=== PATIENT | female | born 1975 | race Caucasian/White ===

== ENCOUNTER 2019-11-16 12:34 | Emergency (ER) | payer OTHER, SELFPAY ==
--- NOTE | ~2019-11-16 | XR_ITS ---
EXAMINATION: XR foot LT min 3V DATE: 11/16/2019 13:17 INDICATION: Left heel pain. TECHNIQUE: 4 views of left foot were obtained. COMPARISON: None. FINDINGS: Bone alignment is normal. No fracture. Joint spaces are well maintained. There is an enthes ophyte at plantar aspect of calcaneal tuberosity. IMPRESSION: 1. No fracture. Reviewed, dictated and finalized at location A. IMPRESSION: 1. No fracture.
[2019-11-16 12:48] VITALS: BP 145/91; PULSE 93; RESP 16; TEMP 37.2; O2SAT 98
--- NOTE | 2019-11-16 13:20 | ED.LOWEXIN ---
HPI - Extremity Injury (Lower) General Chief Complaint: Extremity Injury, Lower Stated Complaint: fell Time Seen by Provider: 11/16/19 13:05 Source: patient and RN notes reviewed History of Present Illness HPI Narrative: Patient is a 43-year-old female that presents the urgent care with complaints of left heel pain. Patient states yesterday she was walking in got her foot stuck in a concrete lip of the pavement, falling forward and losing her shoe. Patient denies any ankle pain. States it is just difficult to bear weight on the left heel. Patient states she does have a history of plantar fasciitis but this might be different . Patient denies hitting her head or any loss of consciousness. Patient has been using ice and elevating the foot without much relief. No other acute complaints. No acute distress noted. Patient read the plan of care. Related Data Home Medications Medication Instructions Recorded Confirmed folic acid 1 mg PO DAILY 11/16/19 11/16/19 methotrexate sodium 20 mg PO WEEKLY 11/16/19 11/16/19 Allergies Allergy/AdvReac Type Severity Reaction Status Date / Time morphine AdvReac Mild itch Verified 11/16/19 12:54 Review of Systems Review of Systems: Narrative: CONSTITUTIONAL: Denies fever, chills, or sweats. EYES: Denies visual changes, redness, or discharge. ENT: Denies rhinorrhea, congestion, sore throat, or otalgia. CARDIOVASCULAR: Denies chest pain, palpitations, or edema. RESPIRATORY: Denies cough or dyspnea. GASTROINTESTINAL: Denies abdominal pain, nausea, vomiting, or diarrhea. GENITOURINARY: Denies dysuria or hematuria. SKIN: Denies rash or itching. MUSCULOSKELETAL: Reports of left heel pain NEUROLOGIC: Denies headache, numbness, or weakness. All other systems reviewed are negative, except as documented in HPI. [facility] Past Medical History Medical History (Updated 11/16/19 @ 13:38 by KARRIE Barboza) Eczema History of drainage of abscess History of MRSA infection Social History Social History Gender identity (if verbalized by the patient): Female Comments At the time of my signature, I reviewed and agree with the nursing past medical, surgical, social, and family history. There is no relevant family history pertinent to the patient complaint. Exam Narrative: Exam Narrative: GENERAL: This is a well-nourished, well-developed patient, in no apparent distress. HEAD: normocephalic, atraumatic. EYES: PERRL. Sclera clear/white. Vision is grossly intact. EARS: External ears normal NOSE: External nose normal with no obvious nasal discharge THROAT: Mucous membranes moist NECK: Neck supple CARDIOVASCULAR: Regular rate and rhythm without murmurs, gallops, or rubs. RESPIRATORY: Clear to auscultation. Breath sounds equal bilaterally. No wheezes, rales, or rhonchi. SKIN: warm, intact with no suspicious lesions or rash, good texture and turgor. NEURO: awake, alert, and oriented to person, place and time. There were no obvious focal neurologic abnormalities. EXTREMITIES: Mild to moderate left plantar heel pain without notable erythema or ecchymosis. Positive strong left pedal pulse with capillary refill less than 2 seconds. Range of motion within normal limits to left lower extremity. Course Vital Signs Vital signs: Vital Signs Temperature 99.0 F 11/16/19 12:48 Pulse Rate 93 11/16/19 12:48 Respiratory Rate 16 11/16/19 12:48 Blood Pressure 145/91 H 11/16/19 12:48 Pulse Oximetry 98 11/16/19 12:48 Temperature 99.0 F 11/16/19 12:48 Pulse Rate 93 11/16/19 12:48 Respiratory Rate 16 11/16/19 12:48 Blood Pressure 145/91 H 11/16/19 12:48 Pulse Oximetry 98 11/16/19 12:48 Reviewed?patient is informed that they may have pre-hypertension or hypertension based on a blood pressure reading in the department. I recommend the patient call the primary care provider listed on their discharge instructions or a physician of their choice this week to arrange follow-up for f
== END 2019-11-16 13:40 | disposition home or self-care (01) ==
PROVIDERS: Emergency Provider Nurse Practitioner Family
DX: M72.2 Plantar fascial fibromatosis (principal); M77.32 Calcaneal spur, left foot; Z86.14 Personal history of Methicillin resistant Staphylococcus aureus infection
CPT/HCPCS: 73630; 99213; G0463

== ENCOUNTER 2022-03-30 10:18 | Emergency (ER) | payer OTHER, SELFPAY ==
[2022-03-30 10:44] VITALS: BP 149/95; PULSE 86; RESP 18; TEMP 36.4; O2SAT 100
--- NOTE | 2022-03-30 11:51 | ED.GENADULT ---
HPI - General Adult General Chief complaint: Skin/Abscess/Foreign Body Stated complaint: Mouth Pain Time Seen by Provider: 03/30/22 11:51 Source: patient and RN notes reviewed Mode of arrival: ambulatory Limitations: no limitations History of Present Illness HPI narrative: Old female presents to the [facility] with complaints of redness, swelling to the lateral aspect left upper lip. Patient reports that she has a history of MRSA and gets the sores frequently. Does see a assistant golf course superintendent at [facility], has an appointment next week. Denies any fevers. Drainage is noted. Area is firm measuring 1-1/2 cm in diameter. Related Data Home Medications Medication Instructions Recorded Confirmed folic acid 1 mg tablet 1 mg PO DAILY 11/16/19 03/30/22 methotrexate sodium 2.5 mg tablet 20 mg PO WEEKLY 11/16/19 03/30/22 Allergies Allergy/AdvReac Type Severity Reaction Status Date / Time morphine AdvReac Mild itch Verified 11/16/19 12:54 Review of Systems Review of Systems: All systems reviewed & are unremarkable except as noted in HPI and below Constitutional: Constitutional: Reports no additional constitutional complaints, Denies chills and Denies fever(s) Eyes: Eyes: Reports no additional eye complaints ENT: Reports system reviewed and no additional complaints, except as documented Cardiovascular: Cardiovascular: Reports no additional cardiovascular complaints Respiratory: Respiratory: Reports no additional respiratory complaints Gastrointestinal: Gastrointestinal: Reports no additional gastrointestinal complaints Musculoskeletal: Musculoskeletal: Reports no additional musculoskeletal complaints Integumentary/Breasts: Skin/Breast: Reports as per HPI and Reports erythema (Left lateral upper lip) Neurologic: Reports system reviewed and no additional complaints, except as documented Psychiatric: Psychiatric: Reports no additional psychiatric complaints Allergic/Immunologic: Allergic/Immunologic: Reports no additional allergic/immunologic complaints [facility] Past Medical History Medical History (Updated 03/30/22 @ 12:00 by Trupti Simmons APRN) Eczema History of drainage of abscess History of MRSA infection Social History Social History Gender identity (if verbalized by the patient): Female Comments At the time of my signature, I reviewed and agree with the nursing past medical, surgical, social, and family history. There is no relevant family history pertinent to the patient complaint. Exam Const: General: healthy appearing, no acute distress and alert Nutritional Appearance: well nourished Orientation/consciousness: patient oriented x3 Limitations: no limitations HENMT: Head: normal to inspection Ears: external ears normal Other: 1cm firm area to the left upper lip. No fluctuance noted. Hot to touch. Has an appointment with a skin doctor at [facility] coming up. Eyes: General: appearance normal, both eyes and all related structures Conjunctivae: conjunctivae normal Pupils: Equal, round and reactive pupils present Neck: Neck: normal visual inspection, no lymphadenopathy and no meningeal signs Chest: Chest palpation & inspection: normal inspection of the chest Resp: Effort & Inspection: normal respiratory effort and no use of accessory muscles Auscultation: clear to auscultation bilaterally, no crackles, no rales, no rhonchi and no wheezes Cardio: Rate: regular rate Rhythm: regular rhythm Back/Spine/Pelvis: Cervical Spine: normal cervical lordosis Thoracic/Lumbar Spine: thoracic and lumbar spine normal to inspection Skin: General skin exam: normal color Rashes: no rashes Wounds: no wounds Neuro: General: patient oriented x3, moves all extremities, no meningeal signs and no focal motor deficits Cranial nerves: Yes Equal, round and reactive pupils present Speech: normal speech Gait exam (Neuro): Normal gait present Extre
== END 2022-03-30 12:11 | disposition home or self-care (01) ==
PROVIDERS: Emergency Provider Nurse Practitioner
DX: L03.211 Cellulitis of face (principal); Z86.14 Personal history of Methicillin resistant Staphylococcus aureus infection
CPT/HCPCS: 87070; 87075; 87147; 87181; 87186; 87205; 99213; G0463

== ENCOUNTER 2022-08-11 18:04 | Emergency (ER) | payer OTHER, SELFPAY ==
--- NOTE | 2022-08-11 18:05 | ED.DENTAL ---
HPI - Dental/Oral General Chief complaint: Dental/Oral Stated complaint: SWOLLEN GUMS Time Seen by Provider: 08/11/22 18:05 Source: patient and RN notes reviewed History of Present Illness HPI Narrative: Patient is a 46-year-old female who presents to urgent care with complaints of redness, swelling to the left upper gumline. Patient states she noticed it 2 days ago. Patient has not taken anything [id number] for her symptoms. States that she has attempted to find a dentist who accepts her insurance and she has not found 1. Denies any dental pain. Denies any fevers. No other acute complaints. No acute distress noted. Patient aware of the plan of care. Some parts of this dictation were generated by voice recognition software and may contain typographical and/or grammatical inaccuracies. Related Data Home Medications Medication Instructions Recorded Confirmed folic acid 1 mg tablet 1 mg PO DAILY 11/16/19 08/11/22 methotrexate sodium 2.5 mg tablet 20 mg PO WEEKLY 11/16/19 08/11/22 Allergies Allergy/AdvReac Type Severity Reaction Status Date / Time morphine AdvReac Mild itch Verified 08/11/22 18:06 Review of Systems Review of Systems: CONSTITUTIONAL: Denies fever, chills, or sweats. EYES: Denies visual changes, redness, or discharge. ENT: Denies rhinorrhea, congestion, sore throat, or otalgia. Reports of left upper gum swelling CARDIOVASCULAR: Denies chest pain, palpitations, or edema. RESPIRATORY: Denies cough or dyspnea. GASTROINTESTINAL: Denies abdominal pain, nausea, vomiting, or diarrhea. GENITOURINARY: Denies dysuria or hematuria. SKIN: Denies rash or itching. MUSCULOSKELETAL: Denies back pain, joint pain, or myalgia. NEUROLOGIC: Denies headache, numbness, or weakness. All other systems reviewed are negative, except as documented in HPI. [facility] Past Medical History Medical History (Updated 08/11/22 @ 18:25 by KARRIE Barboza) Eczema History of drainage of abscess History of MRSA infection Social History Social History Gender identity (if verbalized by the patient): Female Comments At the time of my signature, I reviewed and agree with the nursing past medical, surgical, social, and family history. There is no relevant family history pertinent to the patient complaint. Exam Narrative: GENERAL: This is a well-nourished, well-developed patient, in no apparent distress. HEAD: normocephalic, atraumatic. EYES: PERRL. Sclera clear/white. Vision is grossly intact. EARS: External ears normal, auditory canals clear and without drainage, TMs normal without perforation. Hearing grossly intact. NOSE: External nose normal with no obvious nasal discharge, nares without redness, no rhinorrhea. THROAT: Mucous membranes moist, posterior pharynx clear. Mild postnasal drainage DENTAL: Mild edema/erythema to left upper quadrant/gingivitis. Canker sore noticed to the left gum line near the canine NECK: Neck supple SKIN: warm, intact with no suspicious lesions or rash, good texture and turgor. NEURO: awake, alert, and oriented to person, place and time. There were no obvious focal neurologic abnormalities. EXTREMITIES: No clubbing, cyanosis, or edema. Course Course Level of Care: Express Care Visit Vital Signs Vital signs: Vital Signs Temperature 97.1 F L 08/11/22 18:16 Pulse Rate 65 08/11/22 18:16 Respiratory Rate 16 08/11/22 18:16 Blood Pressure 144/93 H 08/11/22 18:16 Pulse Oximetry 100 08/11/22 18:16 Temperature 97.1 F L 08/11/22 18:16 Pulse Rate 65 08/11/22 18:16 Respiratory Rate 16 08/11/22 18:16 Blood Pressure 144/93 H 08/11/22 18:16 Pulse Oximetry 100 08/11/22 18:16 Reviewed- Patient is informed that they may have pre-hypertension or hypertension based on a blood pressure reading in the department. I recommend the patient call the primary care provider listed on their discharge instructions or a physician
[2022-08-11 18:16] VITALS: BP 144/93; PULSE 65; RESP 16; TEMP 36.2; O2SAT 100
== END 2022-08-11 18:27 | disposition home or self-care (01) ==
PROVIDERS: Emergency Provider Nurse Practitioner Family
DX: K05.10 Chronic gingivitis, plaque induced (principal); Z86.14 Personal history of Methicillin resistant Staphylococcus aureus infection
CPT/HCPCS: 99213; G0463

== ENCOUNTER 2022-11-24 10:19 | Emergency (ER) | payer OTHER, SELFPAY ==
[2022-11-24 10:35] VITALS: BP 126/92; PULSE 88; RESP 18; TEMP 36.6; O2SAT 100
--- NOTE | 2022-11-24 10:51 | ED.SKABFB ---
HPI - Skin/Abscess/Foreign Bdy General Chief complaint: Skin/Abscess/Foreign Body Stated complaint: infection lt shoulder blade Time Seen by Provider: 11/24/22 10:45 Source: patient, RN notes reviewed and old records reviewed Mode of arrival: ambulatory Limitations: no limitations History of Present Illness HPI narrative: 46 year old female presents to [facility] care with complaints of abscess lesion to her left scapula region which started on Wednesday. Patient reports that she thought it was a pimple and popped it. 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 complaint: abscess/boil Onset (ago): day(s) (4) Tetanus up to date: yes Location: back (left scapular area) Severity scale (1-10): 4 Treatments prior to arrival: attempted to drain pus at home and other (warm compresses) Related Data Home Medications Medication Instructions Recorded Confirmed folic acid 1 mg tablet 1 mg PO DAILY 11/16/19 11/24/22 methotrexate sodium 2.5 mg tablet 20 mg PO WEEKLY 11/16/19 11/24/22 Allergies Allergy/AdvReac Type Severity Reaction Status Date / Time morphine AdvReac Mild itch Verified 11/24/22 10:43 amoxicillin AdvReac Other Verified 11/24/22 10:44 Review of Systems Review of Systems: CONSTITUTIONAL: Denies fever, chills, or sweats. CARDIOVASCULAR: Denies chest pain, palpitations, or edema. RESPIRATORY: Denies cough or dyspnea. GASTROINTESTINAL: Denies abdominal pain, nausea, vomiting SKIN: Reports redness and swelling. Denies any present purulent drainage, pain beyond proportion,positive warmth to left scapular region abscess MUSCULOSKELETAL: Denies myalgia. NEUROLOGIC: Denies headache, numbness All systems reviewed & are unremarkable except as noted in HPI and below PMFSH Past Medical History Medical History (Updated 11/25/22 @ 09:50 by Gemini Mendoza NP) Eczema History of drainage of abscess History of MRSA infection Social History Social History (Updated 11/25/22 @ 09:45 by Gemini Mendoza NP) Smoking status: Never smoker Alcohol intake: current Alcohol use details: rare social Substance use: never Substance use type: does not use Living arrangements: with family Gender identity (if verbalized by the patient): Female Comments At time of signature, agree with nursing past medical, surgical, social and family history. There is no relevant family history pertinent to the presenting complaint Exam Narrative: GENERAL: Well-appearing, well-nourished, and in no acute distress. HEAD: Normocephalic, atraumatic. EYES: PERRLA and EOMI. ENT: Nares clear, no rhinorrhea or epistaxis. Mucous membranes moist. NECK: Supple.no lymphadenopathy CHEST: Clear to auscultation. No respiratory distress. SAO2 100% on room air HEART: Regular rate and rhythm. No murmur heard. Normal peripheral pulses. ABDOMEN: Soft, nontender, nondistended, normal active bowel sounds. EXTREMITIES: Normal range of motion. No edema. SKIN: Warm, dry. Erythema, induration, tenderness, warmth with sharp margins noted 8cm width by 6cm length. No vesicles, bullae, necrosis, positive ecchymosis, no fluctuance of tissue noted is tender to palpation. NEURO: No focal deficits. Alert and oriented x3. Course Course Emergency Course: Patient is aware of diagnosis, understands and agrees to treatment plan. Anticipatory guidance given. Patient agrees to follow-up as directed and is aware of reasons to seek care at the emergency department. Portions of this record may have been created with voice recognition software Level of Care: Express Care Visit Vital Signs Vital signs: Vital Signs Temperature 36.6 C 11/24/22 10:35 Pulse Rate 88 11/24/22 10:35 Respiratory Rate 18 11/24/22 10:35 B
== END 2022-11-24 11:20 | disposition home or self-care (01) ==
PROVIDERS: Emergency Provider Registered Nurse
DX: L02.414 Cutaneous abscess of left upper limb (principal); Z86.14 Personal history of Methicillin resistant Staphylococcus aureus infection
CPT/HCPCS: 99213; G0463

== ENCOUNTER 2023-05-12 08:32 | Emergency (ER) | payer OTHER, SELFPAY ==
--- NOTE | 2023-05-12 08:41 | ED.SKABFB ---
HPI - Skin/Abscess/Foreign Bdy General Chief complaint: Skin/Abscess/Foreign Body Stated complaint: Boil on Back Time Seen by Provider: 05/12/23 08:47 Source: patient, RN notes reviewed and old records reviewed Mode of arrival: ambulatory Limitations: no limitations History of Present Illness HPI narrative: 47 year old female who presents to [facility] care with complaints of having boil on her lower back since Wednesday and has noted small amount of purulent drainage from site starting on Wednesday. Patient reports history of previous MRSA infections and abscess formations. Patient has area of redness, swelling with minimal warmth to lower mid back with small pustule noted no fluctuance of tissue noted. Patient has been using warm compresses to area and has taken Tylenol for her discomfort. MD complaint: abscess/boil Onset (ago): day(s) (5) Location: back Severity: moderate Quality: aching Treatments prior to arrival: other (warm compresses, Tylenol) Related Data Home Medications Medication Instructions Recorded Confirmed folic acid 1 mg tablet 1 mg PO DAILY 11/16/19 05/12/23 methotrexate sodium 2.5 mg tablet 20 mg PO WEEKLY 11/16/19 05/12/23 nystatin 100,000 unit/gram topical 1 applic topical DIRECTED 05/12/23 05/12/23 cream tacrolimus 0.1 % topical ointment 1 applic topical DIRECTED 05/12/23 05/12/23 Allergies Allergy/AdvReac Type Severity Reaction Status Date / Time morphine AdvReac Mild itch Verified 05/12/23 08:44 amoxicillin AdvReac Other Verified 05/12/23 08:44 Review of Systems Review of Systems: CONSTITUTIONAL: Denies fever, chills, or sweats. CARDIOVASCULAR: Denies chest pain, palpitations, or edema. RESPIRATORY: Denies cough or dyspnea. GASTROINTESTINAL: Denies abdominal pain, nausea, vomiting SKIN: Reports redness and swelling area to lower mid back. Reports small amount of purulent drainage,small inner pustule with no fluctuance of tissue, reports no pain beyond proportion. MUSCULOSKELETAL: Denies myalgia. NEUROLOGIC: Denies headache, numbness All systems reviewed & are unremarkable except as noted in HPI and below PMFSH Past Medical History Medical History (Updated 05/12/23 @ 09:07 by Gemini Mendoza NP) Eczema History of drainage of abscess History of MRSA infection Surgical History Surgical History (Updated 05/12/23 @ 09:07 by Gemini Mendoza NP) Previous section x2 Social History Social History (Updated 11/25/22 @ 09:45 by Gemini Mendoza NP) Smoking status: Never smoker Alcohol intake: current Alcohol use details: rare social Substance use: never Substance use type: does not use Living arrangements: with family Gender identity (if verbalized by the patient): Female Comments At time of signature, agree with nursing past medical, surgical, social and family history. There is no relevant family history pertinent to the presenting complaint Exam Narrative: GENERAL: Well-appearing, well-nourished,obesity and in no acute distress. HEAD: Normocephalic, atraumatic. EYES: PERRLA and EOMI. ENT: Nares clear, no rhinorrhea or epistaxis. Mucous membranes moist. NECK: Supple. no lymphadenopathy CHEST: Clear to auscultation. No respiratory distress.SAO2 99% on room air HEART: Regular rate and rhythm. No murmur heard. Normal peripheral pulses. ABDOMEN: Soft, nontender, nondistended, normal active bowel sounds. EXTREMITIES: Normal range of motion. No edema. SKIN: Warm, dry. [id number] area of erythema, induration, tenderness, warmth with small 0.3cm pustule no fluctuance of tissue, has been daining small amounts of purulent material, Patient also has history of past MRSA infections and eczema. NEURO: No focal deficits. Alert and oriented x3. Course Course Emergency Course: Patient is aware of diagnosis, understands and agrees to treatment plan. Anticipatory guidance given. Patient agrees to follow-up as directed and is aware of reasons to seek care at the
[2023-05-12 08:43] VITALS: BP 144/92; PULSE 85; RESP 16; TEMP 35.9; O2SAT 99
[2023-05-12 08:45] VITALS: BP 144/92; PULSE 85; RESP 16; TEMP 35.9; O2SAT 99
== END 2023-05-12 09:02 | disposition home or self-care (01) ==
PROVIDERS: Emergency Provider Registered Nurse
DX: L02.212 Cutaneous abscess of back [any part, except buttock and flank] (principal); Z86.14 Personal history of Methicillin resistant Staphylococcus aureus infection
CPT/HCPCS: 99213; G0463

== ENCOUNTER 2023-09-22 08:17 | Emergency (ER) | payer OTHER, SELFPAY ==
[2023-09-22 08:26] VITALS: BP 112/67; PULSE 66; RESP 16; TEMP 36.4; O2SAT 100
--- NOTE | 2023-09-22 08:40 | ED.SKABFB ---
HPI - Skin/Abscess/Foreign Bdy General Chief complaint: Skin/Abscess/Foreign Body Stated complaint: INFECTED RASH Time Seen by Provider: 09/22/23 08:40 Source: patient Mode of arrival: ambulatory Limitations: no limitations History of Present Illness HPI narrative: [age] year female presents with complaint infection to right side forehead for 3-4 days below left nostril for 2 days. Patient reports history of staph and MRSA. States that she gets skin infections from scratching her eczema. Afebrile. All systems reviewed and negative except as noted above. Related Data Allergies Allergy/AdvReac Type Severity Reaction Status Date / Time morphine AdvReac Mild itch Verified 09/22/23 08:38 amoxicillin AdvReac Other Verified 09/22/23 08:38 Review of Systems Review of Systems: CONSTITUTIONAL: Denies fever, chills, or sweats. EYES: Denies visual changes, redness, or discharge. ENT: Denies rhinorrhea, congestion, sore throat, or otalgia. CARDIOVASCULAR: Denies chest pain, palpitations, or edema. RESPIRATORY: Denies cough or dyspnea. GASTROINTESTINAL: Denies abdominal pain, nausea, vomiting, or diarrhea. GENITOURINARY: Denies dysuria or hematuria. SKIN: Denies rash or itching. Reports redness, swelling and drainage to right forehead and below left ear. MUSCULOSKELETAL: Denies back pain, joint pain, or myalgia. NEUROLOGIC: Denies headache, numbness, or weakness. PSYCHIATRIC: Denies anxiety or depression. All other systems reviewed are negative, except as documented in HPI. [facility] Past Medical History Medical History (Updated 09/22/23 @ 08:46 by Wilda Schneider NP) Eczema History of drainage of abscess History of MRSA infection Surgical History Surgical History (Updated 05/12/23 @ 09:07 by Gemini Mendoza NP) Previous section x2 Social History Social History (Updated 11/25/22 @ 09:45 by Gemini Mendoza NP) Smoking status: Never smoker Alcohol intake: current Alcohol use details: rare social Substance use: never Substance use type: does not use Living arrangements: with family Gender identity (if verbalized by the patient): Female Comments At time of signature, agree with nursing past medical, surgical, social and family history. There is no relevant family history pertinent to the presenting complaint. Exam Narrative: GENERAL: This is a well-nourished, well-developed patient, in no apparent distress. HEAD: normocephalic, atraumatic. EYES: PERRL. Sclera clear/white. Vision is grossly intact. EARS: External ears normal NOSE: External nose normal NECK: Neck supple, non-tender without lymphadenopathy, masses or thyromegaly. CARDIOVASCULAR: Regular rate and rhythm without murmurs, gallops, or rubs. RESPIRATORY: Clear to auscultation. Breath sounds equal bilaterally. No wheezes, rales, or rhonchi. SKIN: warm, Dry, intact with no suspicious rash, good texture and turgor. open and draining erythematous swollen area to R forehead approx. 2cm diameter. area of erythema below L nare, swollen, tender. no drainage or fluctuance. NEURO: awake, alert, and oriented to person, place and time. There were no obvious focal neurologic abnormalities. EXTREMITIES: No joint tenderness, effusion, or edema noted. Course Course Level of Care: Express Care Visit Vital Signs Vital signs: Vital Signs Temperature 36.4 C L 09/22/23 08:26 Pulse Rate 66 09/22/23 08:26 Respiratory Rate 16 09/22/23 08:26 Blood Pressure 112/67 09/22/23 08:26 Pulse Oximetry 100 09/22/23 08:26 Temperature 36.4 C L 09/22/23 08:26 Pulse Rate 66 09/22/23 08:26 Respiratory Rate 16 09/22/23 08:26 Blood Pressure 112/67 09/22/23 08:26 Pulse Oximetry 100 09/22/23 08:26 Oxygen Delivery Room Air 09/22/23 08:30 Reviewed MDM - Skin/Abscess/Foreign Bdy MDM Narrative Medical decision making narrative: Patient is aware of diagnosis, understands and agrees to treatment plan.
== END 2023-09-22 08:49 | disposition home or self-care (01) ==
PROVIDERS: Emergency Provider Nurse Practitioner Family
DX: L08.9 Local infection of the skin and subcutaneous tissue, unspecified (principal); B95.8 Unspecified staphylococcus as the cause of diseases classified elsewhere; Z86.14 Personal history of Methicillin resistant Staphylococcus aureus infection
CPT/HCPCS: 99213; G0463

== ENCOUNTER 2024-10-11 18:02 | Emergency (ER) | payer OTHER, SELFPAY ==
[2024-10-11 18:33] VITALS: BP 123/71; PULSE 80; RESP 20; TEMP 36.6; O2SAT 100
--- NOTE | 2024-10-11 20:40 | PC.NURSE ---
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
--- OUTSIDE RECORDS SUMMARY | 2024-10-11 20:58 | XMS_ITS | Referral Summary ---
Author Organization [facility] Address [address] [place] [address] Care Team Providers Care Labor And Employment Paralegal Name Role Phone Unknown, Provider Primary Care Provider Unavaila ble Source Comments [facility],non-owned Affiliates and Associated Physician Practices is amultiple site organization consisting of ambulatory clinics and hospital sitesin [place], [place], [place] and [place]. This disclosure is being madepursuant to the Care Everywhere program and may not contain all information available regarding this patient. Last updated 18.[facility] Encounters Date Type Department Care Team Description 08/25/2024 Telephone [facility] - General Dermatology [address], [facility] [address] [place] [address] Tommy Castaneda PA-C Medication Issue 08/24/2024 Travel 08/24/2024 4:00 PM STAFF MIDWIFE Office Visit [facility] - General Dermatology [address], [facility] [address] [place] [address] Tommy Castaneda PA-C Other atopic dermatitis (Primary Dx); Prurigo nodularis; Other specified follicular disorders; Other seborrheic dermatitis 08/21/2024 Travel 08/21/2024 9:30 AM STAFF MIDWIFE Office Visit [facility] - Ophthalmology [address] [place] [phone] Fernando Gibbons MD 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 Alwaysverify current medications with the patient. Medication Sig Dispensed Refills Start Date End Date Status mupirocin (Bactroban) 2 % ointment Apply to affected area 3 times daily Apply to nostrils and open sores for 5 days 30 g 10/29/2022 Active triamcinolone acetonide (Kenalog) 0.1 % creamIndications:O ther atopic dermatitis Apply BID to itchy scaly lesions on the body as needed 454 g 1 06/07/2023 Active fluocinolone acetonide (Synalar) 0.01 % solutionIndication s:Other atopic dermatitis Apply to scaly scalp areas BID PRN. 30 day supply 60 mL 4 10/29/2023 Active nystatin (Mycostatin) [id number] UNIT/GM creamIndications:I ntertrigo Apply to skin folds 2-3 times daily. 30 days supply. 30 g 5 10/29/2023 Active tralokinumab-ldrm (Adbry) 150 MG/ML prefilled syringeIndications :Other atopic dermatitis Inject 300 mg subcutaneously every 14 days. 28 day supply 4 mL 5 06/01/2024 Active artificial tears (SOOTHE) ophthalmic solution Instill 1 (one) drop into right eye 4 times daily 15 mL 06/27/2024 Active tacrolimus (Protopic) 0.1 % ointmentIndication s:Other atopic dermatitis,Prurigo nodularis Apply to affected face two times daily as needed 30 day supply 30 g 5 08/24/2024 Active clindamycin (Cleocin) 1 % lotionIndications: Other specified follicular disorders Apply to affected area on thighs twice daily. 30 day supply. 60 mL 1 08/24/2024 Active ketoconazole (Nizoral) 2 % shampooIndications :Other seborrheic dermatitis Apply to wet hair, leave on for 3 minutes, then rinse; three times weekly. 30 days supply 120 mL 11 08/24/2024 Active fluocinonide (Lidex) 0.05 % solutionIndication s:Other seborrheic dermatitis Apply to affected scalp twice daily. 30 days supply. 40 mL 5 08/24/2024 Active ciclopirox (Loprox) 1 % shampooIndications :Other seborrheic dermatitis Apply to wet hair, leave on for 3 minutes, then rinse; twice weekly. 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 (F LUZONE; FLULAVAL; FLUARIX; AFLURIA QUADRIVALENT; 6MO+), 0.5 ML (IIV4) 05/13/2021 Social History Tobacco Use Types Packs/Day Years Used Date Smoking Tobacco: Never Smokeless Tobacco: Never Tobacco Cessation:Counseling Given: Not Answered Alcohol Use Standard Drinks/Week Comments No 1 (1 standard drink = 0.6 oz pure alcohol) OCCASIONAL, ONCE EVERY FEW MONTHS PHQ-2 Answer Date Recorded PHQ2 TOTAL SCORE 0 08/06/2021 Sex and Gender Information Value Date Recorded Sex Assigned at Female 08/06/2021 9:18 AM STAFF MIDWIFE Gender Identity Female 08/06/2021 9:18 AM STAFF MIDWIFE Sexual Orientation Straight 08/06/2021 9: 18 AM STAFF MIDWIFE Last Filed Vital Signs Vital Sign Reading Time Taken Comments Blood Pressure 126/57 06/25/2024 2:14 PM STAFF MIDWIFE Pulse 75 06/25/2024 2:14 PM STAFF MIDWIFE Temperature 36.6 C (97.9 F) 06/25/2024 9:07 AM STAFF MIDWIFE Respiratory Rate 14 06/25/2024 2:14 PM STAFF MIDWIFE Oxygen Saturation 98% 06/25/2024 2:14 PM STAFF MIDWIFE Inhaled Oxygen Concentration - - Weight 136.1 kg (300 lb) 06/25/2024 9:07 AM STAFF MIDWIFE Height 152.4 cm (5') 06/25/2024 9:07 AM STAFF MIDWIFE Body Mass Index 58.59 06/25/2024 9:07 AM STAFF MIDWIFE Functional Status Functional Status Response Date of Assess ment Is person deaf or have serious hearing difficult y? No 06/13/2021 Is person blind or have serious difficulty seein g? No 06/13/2021 Does person have serious dif ficulty walking/climbing stairs? No 06/13/2021 Does person have difficulty dressing/bathing? No 06/13/2021 Does person have difficulty doing errands alone? No 06/13/2021 Cognitive Status Response Date of Assessm ent Does person have difficulty concentrating/remembering/making decisions? No 06/13/2021 Plan of Treatment Upcoming Encounters Date Type Department Care Team (Late st Contact Info) Description 02/19/2025 11:00 AM CDT Office Visit [facility] - Ophthalmology [address] [place] [address], [place] [address] Fernando Gibbons MD [address] [place] [address] [place] [address] 02/27/2025 1:00 PM CDT Office Visit [facility] - Dermatology [address] [place] [address], [place] [address] Tommy Castaneda PA-C [address] [place] [address] Goals Goal Patient Goal Type Associated Problems Recent Progress Patient-Stated? Author Medication Management General On track( 022 10:49 AM STAFF MIDWIFE) No Norman Peter, RN Note: Expected end date: Interventions: Take all medications as prescribed Let your doctor know right away about any changes in your medications Make sure to request a refill of your medication at least one week prior to your last dose Procedures Procedure Name Priority Date/Time Associated Diagnosis Comments COMPREHENSIVE METABOLIC PANEL STAT 06/25/2024 9:42 AM STAFF MIDWIFE PAP IG LB+HPV APTIMA Routine 08/06/2021 12:06 PM STAFF MIDWIFE Well woman exam with routine gynecological exam HEPATITIS C AB W/RFLX TO HCV RNA QN PCR Routine 05/27/2017 10:13 AM CDT from Last 3 Months or Most Recently Relevant to Health Maintenance Results * (ABNORMAL) COMPREHENSIVE METABOLIC PANEL (06/25/2024 9:42 AM STAFF MIDWIFE) BUN 11 7 - 26 mg/dL 06/25/2024 10:26 AM [facility] Creatinine 0.84 0.56 - 0.96 mg/dL 06/25/2024 10:26 AM [facility] Sodium 139 136 - 145 mmol/L 06/25/2024 10:26 AM [facility] Potassium 4.1 3.5 - 4.5 mmol/L 06/25/2024 10:26 AM [facility] Chloride 107 98 - 107 mmol/L 06/25/2024 10:26 AM [facility] CO2 25 22 - 29 mmol/L 06/25/2024 10:26 AM [facility] Glucose 98 70 - 99 mg/dL 06/25/2024 10:26 AM [facility] Calcium 9.3 8.4 - 10.2 mg/dL 06/25/2024 10:26 AM [facility] Protein Total 7.3 6.0 - 8.3 g/dL 06/25/2024 10:26 AM [facility] Albumin 3.6 3.4 - 5.0 g/dL 06/25/2024 10:26 AM [facility] Bilirubin Total 0.5 0.2 - 1.2 mg/dL 06/25/2024 10:26 AM [facility] Alkaline Phosphatase 87 40 - 150 U/L 06/25/2024 10:26 AM [facility] ALT 17 5 - 55 U/L 06/25/2024 10:26 AM [facility] AST 17 5 - 34 U/L 06/25/2024 10:26 AM [facility] Anion Gap 7 6 - 16 06/25/2024 10:26 AM [facility] BUN/Creatinine Ratio 13 7 - 23 06/25/2024 10:26 AM [facility] Osmolality Calculated 287 275 - 295 mOsm/kg 06/25/2024 10:26 AM [facility] Albumin/Globulin Ratio 1.0(L) 1.1 - 2.3 06/25/2024 10:26 AM [facility] eGFR by CKD-EPI 86(L) >=90 mL/min/1.7 3 m2 06/25/2024 10:26 AM [facility] Blood BLOOD SPECIMEN / Unknown Venipuncture / Unknown 06/25/2024 9:42 AM STAFF MIDWIFE 06/25/2024 9:55 AM STAFF MIDWIFE Mariomirella Vitalydieudonne Ananda DO LAB - CHEMISTRY OR DERABLES [facility] [address] [place] [address], [place] [phone] * (ABNORMAL) PAP IG LB+HPV APTIMA (08/06/2021 12:06 PM STAFF MIDWIFE) Diagnosis (A) [facility] INSURANCE BILL Comment: EPITHELIAL CELL ABNORMALITY. ATYPICAL SQUAMOUS CELLS OF UNDETERMINED SIGNIFICANCE (ASC-US). FUNGAL ORGANISMS MORPHOLOGICALLY CONSISTENT WITH ARI SPECIES ARE PRESENT. Recommendation (A) [facility] INSURANCE BILL Comment:Suggest follow up as clinically appropriate. Specimen Adequacy [facility] INSURANCE BILL Comment: Satisfactory for evaluation. Endocervical and/or squamous metaplastic cells (endocervical component) are present. Clinician Provided ICD10 [facility] INSURANCE BILL Comment:Z01.419 Performed by [facility] INSURANCE BILL Comment:Yifan Sneed totechnologist Electronically Signed by [facility] INSURANCE BILL Comment:Ivone Stone MD, Pathologist Comment . [facility] INSURANCE BILL Pathologist Provided ICD10 [facility] INSURANCE BILL Comment:R87.610, R87.5 Note [facility] INSURANCE BILL Comment: The Pap smear is a screening test designed to aid in the detection of premalignant and malignant conditions of the uterine cervix. It is not a diagnostic procedure and should not be used as the sole means of detecting cervical cancer. Both false-positive and false-negative reports do occur. . [facility] CPT Code Automation [facility] INSURANCE BILL Comment: This liquid based ThinPrep(R) pap test was screened with the use of an image guided system. Human papillomavirus Aptima Negative Negative [facility] INSURANCE BILL Comment: This nucleic acid amplification test detects fourteen high-risk HPV types (16,18,31,33,35,39,45,51,52,56,58,59,66,68) without differentiation. Pathology/Cytolog y PART OF UTERINE CERVIX / Unknown 08/06/2021 12:06 PM STAFF MIDWIFE 08/07/2021 Narrative [facility] INSURANCE BILL - 08/11/2021 5:08 PM STAFF MIDWIFE Source.............Cervix No. of containers..01 ThinPrep Vial Resulting Agency Comment Lab Testing performed at: [facility] Bia GONZALEZ [id number] Veronica Farrell MD LAB - PATHOLOGY/CYTO LOGY ORDERABLES [facility] INS[facility] BILL [address] [place] [address] * HEPATITIS C AB W/RFLX TO HCV RNA QN PCR (05/27/2017 10:13 AM CDT) Hepatitis C Antibody NON-REACTI VE NON-REACT [facility] Signal/Cutoff 0.03 <1.00 [facility] Comment: Test Performed at: [facility] [address] [place] [address] GRECIA BARROW DO,MPH 05/27/2017 10:1 3 AM CDT 05/27/2017 10:13 AM CDT Ana Pryor MD LAB - CHEMISTRY O RDERABLES [facility]) from Last 3 Months or Most Recently Relevant to Health Maintenance Care Teams Labor And Employment Paralegal Relationship Specialty Start Date End Date Unknown, Provider PCP - General 01/03/18
--- OUTSIDE RECORDS SUMMARY | 2024-10-11 20:58 | XMS_ITS | Encounter Summary ---
Author Organization [facility] Address [address] [facility] [place] [address] Care Team Providers Care Locomotive Lubricating Systems Clerk Name Role Phone Unknown, Provider Primary Care Provider Unavaila ble Encounter Details Date Type Department Care Team (Late st Contact Info) Description 02/18/2024 Telephone [facility] - Dermatology [address] [facility] [place] [phone] Tommy Castaneda [address] [facility] [address] [place] [address] Social History Tobacco Use Types Packs/Day Years Used Date Smoking Tobacco: Never Smokeless Tobacco: Never Alcohol Use Standard Drinks/Week Comments No 1 (1 standard drink = 0.6 oz pure alcohol) OCCASIONAL, ONCE EVERY FEW MONTHS PHQ-2 Answer Date Recorded PHQ2 TOTAL SCORE 0 08/06/2021 Sex and Gender Information Value Date Recorded Sex Assigned at Female 08/06/2021 9:18 AM SUPERVISOR FRAMING MILL Gender Identity Female 08/06/2021 9:18 AM SUPERVISOR [employer]AMING MILL Sexual Orientation Straight 08/06/2021 9: 18 AM SUPERVISOR FRAMING MILL documented as of this encounter Functional Status Functional Status Response Date of [...] person have difficulty concentrating/remembering/making decisions? No 06/13/2021 documented as of this encounter Progress Notes * Melodie Gannon - 02/23/2024 5:32 PM CDT Medication Prior Authorization: Medication: Adbry 150mg/ml syr Status: Approved 02/18/24 through 02/17/25 Submitted via: Cover My Meds (Mccabe: [id number]) Insurance: [employer] [place] (p: [phone]) (f: [phone]) Case/Reference number: ID: [id number] RX Card Billing Info: BIN: [id number] PCN: [place] GROUP: [id number] ID: [id number] PA approval notice uploaded to media tab. Routed approval information to [facility] Specialty. Melodie Gannon- Pharmacy Sr. Manager Marketing (Dermatology) documented in this encounter Miscellaneous Notes * Telephone Encounter - Melodie Gannon - 02/18/2024 12:38 PM CDT PA submitted forcontinuation of therapy Adbry 150mg/ml syr maintenance dose of 300mg every 14 days [place] on decision. Mccabe: [id number] Provider:[id number] [facility] Melodie Gannon [facility] - Pharmacy Sr. Manager Marketing documented in this encounter Plan of Treatment Upcoming Encounters Date Type Department Care Team (Late st Contact Info) Description 02/19/2025 11:00 AM CDT Office Visit [facility] - Ophthalmology [address] [place] [phone] Fernando Gibbons MD [address] [place] [address] DEPT [place] [phone] 02/27/2025 1:00 PM CDT Office Visit [facility] - Dermatology [address] [facility] [place] [address] Tommy Castaneda, PAAbbyC [address] [place] [address] documented as of this encounter Goals Goal Patient Goal Type Associated Problems Recent Progress Patient-Stated? Author Medication Management General On track( 022 10:49 AM SUPERVISOR FRAMING MILL) Norman Page, RN Note: Expected end date: Interventions: Take all medications as prescribed Let your doctor know right away about any changes in your medications Make sure to request a refill of your medication at least one week prior to your last dose documented as of this encounter Visit Diagnoses Not on filedocumented in this encounter Care Teams Locomotive Lubricating Systems Clerk Relationship Specialty Start Date End Date Unknown, Provider PCP - General 01/03/18 documented as of this encounter
--- OUTSIDE RECORDS SUMMARY | 2024-10-11 20:58 | XMS_ITS | Encounter Summary ---
Author Organization [facility] Address [address] [facility] [place] [address] Care Team Providers Care Assessment Nurse Practitioner Name Role Phone Unknown, Provider Primary Care Provider Unavaila ble Reason for Visit * Reason Onset Date Comments MEDICATION REFILL 12/09/2022 Encounter Details Date Type Department Care Team (Late st Contact Info) Description 12/09/2022 Refill [facility] [address] [place] [address] Janice Laurent, PA [address] [facility] [address] [place] [phone] MEDICATION REFILL Social History Tobacco Use Types Packs/Day Years Used Date Smoking Tobacco: Never Smokeless Tobacco: Never Alcohol Use Standard Drinks/Week Comments No 1 (1 standard drink = 0.6 oz pure alcohol) OCCASIONAL, ONCE EVERY FEW MONTHS PHQ-2 Answer Date Recorded PHQ2 TOTAL SCORE 0 08/06/2021 Sex and Gender Information Value Date Recorded Sex Assigned at Female 08/06/2021 9:18 AM SENIOR ENVIRONMENTAL SCIENTIST Gender Identity Female 08/06/2021 9:18 AM SENIOR ENVIRONMENTAL SCIENTIST Sexual Orientation Straight 08/06/2021 9: 18 AM SENIOR ENVIRONMENTAL SCIENTIST documented as of this encounter Functional Status [...] No 06/13/2021 documented as of this encounter Plan of Treatment Upcoming Encounters Date Type Department Care Team (Late st Contact Info) Description 02/19/2025 11:00 AM CDT Office Visit [facility] - Ophthalmology [address] [facility] [place] [phone] Fernando Gibbons MD [address] [place] [address] [place] [phone] 02/27/2025 1:00 PM CDT Office Visit [facility] - Dermatology [address] [place] [address], [place] [phone] Tommy Castaneda, PA-C [address] [facility] [address] [place] [address] documented as of this encounter Goals Goal Patient Goal Type Associated Problems Recent Progress Patient-Stated? Author Medication Management General On track( 022 10:49 AM SENIOR ENVIRONMENTAL SCIENTIST) Norman Page, RN Note: Expected end date: Interventions: Take all medications as prescribed Let your doctor know right away about any changes in your medications Make sure to request a refill of your medication at least one week prior to your last dose documented as of this encounter Visit Diagnoses Not on filedocumented in this encounter Care Teams Assessment Nurse Practitioner Relationship Specialty Start Date End Date Unknown, Provider PCP - General 01/03/18 documented as of this encounter
--- OUTSIDE RECORDS SUMMARY | 2024-10-11 20:58 | XMS_ITS | Encounter Summary ---
Author Organization [facility] Address [address] [facility] [place] [address] Care Team Providers Care Airframe Technician Name Role Phone Unknown, Provider Primary Care Provider Unavaila ble Encounter Details Date Type Department Care Team (Late st Contact Info) Description 06/25/2024 Ophth Exam [facility] - Ophthalmology [address] [place] [phone] Jon Wood MD [address] [place] [address] Social History Tobacco Use Types Packs/Day Years Used Date Smoking Tobacco: Never Smokeless Tobacco: Never Alcohol Use Standard Drinks/Week Comments No 1 (1 standard drink = 0.6 oz pure alcohol) OCCASIONAL, ONCE EVERY FEW MONTHS PHQ-2 Answer Date Recorded PHQ2 TOTAL SCORE 0 08/06/2021 Sex and Gender Information Value Date Recorded Sex Assigned at Female 08/06/2021 9:18 AM FUR FINISHER Gender Identity Female 08/06/2021 9:18 AM FUR FINISHER Sexual Orientation Straight 08/06/2021 9: 18 AM FUR FINISHER documented as of this encounter Functional Status [...] Office Visit [facility] - Ophthalmology [address] [place] [address], [place] [address] Fernando Gibbons MD [address] [place] [address] [place] [address] 02/27/2025 1:00 PM CDT Office Visit [facility] - Dermatology [address] [place] [address], [place] [address] Tommy Castaneda, PAAbbyC [address] [place] [address] documented as of this encounter Goals Goal Patient Goal Type Associated Problems Recent Progress Patient-Stated? Author Medication Management General On track( 022 10:49 AM FUR FINISHER) No Norman Peter, RN Note: Expected end date: Interventions: Take all medications as prescribed Let your doctor know right away about any changes in your medications Make sure to request a refill of your medication at least one week prior to your last dose documented as of this encounter Visit Diagnoses Not on filedocumented in this encounter Care Teams Airframe Technician Relationship Specialty Start Date End Date Unknown, Provider PCP - General 01/03/18 documented as of this encounter
--- OUTSIDE RECORDS SUMMARY | 2024-10-11 20:58 | XMS_ITS | Patient Health Summary ---
Author Organization 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,non-owned Affiliates and Associated Physician Practices is amultiple site organization consisting of ambulatory clinics and hospital sitesin [place], [place], [place]. This disclosure is being madepursuant to the Care Everywhere program and may not contain all information available regarding this patient. Last updated 18.[facility] Allergies * Morphine(Itching) Medications * Be aware that medications may not be up to date on this document. Alwaysverify current medications with the patient. * mupirocin (Bactroban) 2 % ointment(Started 10/29/2022) Apply to affected area 3 times daily Apply to nostrils and open sores for 5 days * triamcinolone acetonide (Kenalog) 0.1 % cream(Started 06/07/2023) Apply BID to itchy scaly lesions on the body as needed 1 refill by 06/06/2024 * fluocinolone acetonide (Synalar) 0.01 % solution(Started 10/29/2023) Apply to scaly scalp areas BID PRN. 30 day supply 4 refills by 10/28/2024 * nystatin (Mycostatin) 610236 UNIT/GM cream(Started 10/29/2023) Apply to skin folds 2-3 times daily. 30 days supply. 5 refills by 10/28/2024 * tralokinumab-ldrm (Adbry) 150 MG/ML prefilled syringe(Started 06/01/2024) Inject 300 mg subcutaneously every 14 days. 28 day supply 5 refills by 06/01/2025 * artificial tears (SOOTHE) ophthalmic solution(Started 06/27/2024) Instill 1 (one) drop into right eye 4 times daily * tacrolimus (Protopic) 0.1 % ointment(Started 08/24/2024) Apply to affected face two times daily as needed 30 day supply 5 refills by 08/24/2025 * clindamycin (Cleocin) 1 % lotion(Started 08/24/2024) Apply to affected area on thighs twice daily. 30 day supply. 1 refill by 08/24/2025 * ketoconazole (Nizoral) 2 % shampoo(Started 08/24/2024) Apply to wet hair, leave on for 3 minutes, then rinse; three times weekly. 30 days supply 11 refills by 08/24/2025 * fluocinonide (Lidex) 0.05 % solution(Started 08/24/2024) Apply to affected scalp twice daily. 30 days supply. 5 refills by 08/24/2025 * ciclopirox (Loprox) 1 % shampoo(Started 08/25/2024) Apply to wet hair, leave on for 3 minutes, then rinse; twice weekly. 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 (FLUZONE; FLULAVAL; FLUARIX; AFLURIA QUADRIVALENT; 6MO+), 0.5 ML (IIV4)(Given 05/13/2021) Social History Tobacco Use Types Packs/Day Years Used Date Smoking Tobacco: Never Smokeless Tobacco: Never Tobacco Cessation:Counseling Given: Not Answered Alcohol Use Standard Drinks/Week Comments No 1 (1 standard drink = 0.6 oz pure alcohol) OCCASIONAL, ONCE EVERY FEW MONTHS PHQ-2 Answer Date Recorded PHQ2 TOTAL SCORE 0 08/06/2021 Sex and Gender Information Value Date Recorded Sex Assigned at Female 08/06/2021 9:18 AM [employer] Gender Identity Female 08/06/2021 9:18 AM [employer] Sexual Orientation Straight 08/06/2021 9: 18 AM [employer] Last Filed Vital Signs Vital Sign Reading Time Taken Comments Blood Pressure 126/57 06/25/2024 2:14 PM [employer] Pulse 75 06/25/2024 2:14 PM [employer] Temperature 36.6 C (97.9 F) 06/25/2024 9:07 AM [employer] Respiratory Rate 14 06/25/2024 2:14 PM [employer] Oxygen Saturation 98% 06/25/2024 2:14 PM [employer] Inhaled Oxygen Concentration - - Weight 136.1 kg (300 lb) 06/25/2024 9:07 AM [employer] Height 152.4 cm (5') 06/25/2024 9:07 AM [employer] Body Mass Index 58.59 06/25/2024 9:07 AM [employer] Procedures * CT HEAD WO CONTRAST(Performed 06/25/2024) Performed for Diplopia * C-REACTIVE PROTEIN(Performed 06/25/2024) * ERYTHROCYTE SEDIMENTATION RATE(Performed 06/25/2024) * COMPREHENSIVE METABOLIC PANEL(Performed 06/25/2024) * CBC W AUTO DIFFERENTIAL(Performed 06/25/2024) * AL INTRALESIONAL INJECTION(S) 7 OR LESS(Performed 02/08/2024) Performed for Prurigo nodularis * CULTURE AEROBIC(Performed 04/12/2023) Performed for Secondary infection of skin * CBC W AUTO DIFFERENTIAL(Performed 01/21/2023) * COMPREHENSIVE METABOLIC PANEL(Performed 01/21/2023) * IRON + TIBC + FERRITIN(Performed 01/21/2023) * CULTURE FUNGUS SKIN HAIR NAIL+FUNGUS SMEAR(Performed 11/02/2022) Performed for Rash and other nonspecific skin eruption * CULTURE AEROBIC(Performed 11/02/2022) Performed for Rash and other nonspecific skin eruption * CBC W AUTO DIFFERENTIAL(Performed 05/15/2022) * COMPREHENSIVE METABOLIC PANEL(Performed 05/15/2022) * CULTURE AEROBIC(Performed 04/13/2022) Performed for Other atopic dermatitis * CULTURE AEROBIC(Performed 04/13/2022) Performed for Other atopic dermatitis * PAP IG LB+HPV APTIMA(Performed 08/06/2021) Performed for Well woman exam with routine gynecological exam * US LIVER BIOPSY(Performed 06/13/2021) Performed for Encounter for long-term (current) use of medications, Morbid obesity (HCC) * PATHOLOGY TISSUE(Performed 06/13/2021) Performed for Encounter for long-term (current) use of medications, Morbid obesity (HCC), Therapeutic procedure * PT-INR [facility](Performed 06/13/2021) Performed for Encounter for long-term (current) use of medications * CBC W AUTO DIFFERENTIAL(Performed 06/13/2021) Performed for Encounter for long-term (current) use of medications * HCG URINE QUALITATIVE - POCT (IP) INTERFACED(Performed 06/13/2021) * HCG URINE QUAL POCT NOTIFICATION(Performed 06/13/2021) Performed for Therapeutic procedure * PT-INR(Performed 06/11/2021) Performed for Encounter for long-term (current) use of medications, Morbid obesity (HCC) * CBC W AUTO DIFFERENTIAL(Performed 06/11/2021) Performed for Encounter for long-term (current) use of medications, Morbid obesity (HCC) * HEPATIC FUNCTION PANEL(Performed 06/11/2021) Performed for Encounter for long-term (current) use of medications, Morbid obesity (HCC) * COMPREHENSIVE METABOLIC PANEL(Performed 04/21/2021) Performed for Encounter for long-term (current) use of high-risk medication * CBC W AUTO DIFFERENTIAL(Performed 04/21/2021) Performed for Encounter for long-term (current) use of high-risk medication * COMPREHENSIVE METABOLIC PANEL(Performed 10/18/2020) 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, longterm, current use * CBC W AUTO DIFFERENTIAL(Performed 10/18/2020) 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, longterm, current use * COMPREHENSIVE METABOLIC PANEL(Performed 04/05/2020) 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, 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, 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 * CBC W AUTO DIFFERENTIAL(Performed 04/05/2020) 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, 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, 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 * CBC W AUTO DIFFERENTIAL(Performed 05/05/2019) 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, longterm, current use * COMPREHENSIVE METABOLIC PANEL(Performed 05/05/2019) 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, longterm, current use * CBC W AUTO DIFFERENTIAL(Performed 12/22/2018) Performed for Encounter for long-term current use of medication, Atopic dermatitis, unspecified type * HEPATIC FUNCTION PANEL(Performed 12/22/2018) Performed for Encounter for long-term current use of medication, Atopic dermatitis, unspecified type * CBC W AUTO DIFFERENTIAL(Performed 09/07/2018) * CBC W AUTO DIFFERENTIAL(Performed 07/14/2018) * COMPREHENSIVE METABOLIC PANEL(Performed 07/14/2018) * CBC W AUTO DIFFERENTIAL(Performed 05/25/2018) Performed for Encounter for long-term (current) use of high-risk medication * COMPREHENSIVE METABOLIC PANEL(Performed 05/25/2018) Performed for Encounter for long-term (current) use of high-risk medication * CBC W AUTO DIFFERENTIAL(Performed 05/11/2018) Performed for Encounter for long-term (current) use of high-risk medication * COMPREHENSIVE METABOLIC PANEL(Performed 05/11/2018) Performed for Encounter for long-term (current) use of high-risk medication * COMPREHENSIVE METABOLIC PANEL(Performed 05/05/2018) Performed for Encounter for long-term (current) use of high-risk medication * CBC W AUTO DIFFERENTIAL(Performed 05/05/2018) Performed for Encounter for long-term (current) use of high-risk medication * AL DRAIN SKIN ABSCESS SIMPLE(Performed 05/04/2018) Performed for Abscess of left thigh * CULTURE AEROBIC(Performed 04/26/2018) Performed for Abscess of left thigh * QUANTIFERON TB-GOLD(Performed 04/20/2018) * CBC W MANUAL DIFFERENTIAL REVIEW(Performed 03/22/2018) * DIFFERENTIAL MANUAL REFLEXED II(Performed 03/22/2018) * COMPREHENSIVE METABOLIC PANEL(Performed 03/22/2018) Performed for Medication management * CULTURE AEROBIC(Performed 02/18/2018) Performed for Secondary impetiginization * HEPATITIS C AB W/RFLX TO HCV RNA QN PCR(Performed 05/27/2017) * HEPATITIS B SURFACE ANTIGEN W RFLX CONFIRMATION(Performed 05/27/2017) * QUANTIFERON TB-GOLD(Performed 05/27/2017) * DIFFERENTIAL MANUAL(Performed 05/27/2017) * CBC W AUTO DIFFERENTIAL(Performed 05/27/2017) * COMPREHENSIVE METABOLIC PANEL(Performed 05/27/2017) * CULTURE AEROBIC(Performed 05/20/2017) * CULTURE AEROBIC(Performed 03/25/2017) * CULTURE FUNGUS OTHER+FUNGUS SMEAR(Performed 07/08/2012) * CULTURE AEROBIC(Performed 07/08/2012) Results * CT Head Wo Contrast (06/25/2024 10:28 AM [employer]) Anatomical Region Laterality Modality Head Computed Tomogra phy 06/25/2024 10:3 6 AM [employer] Impressions 06/25/2024 11:23 AM [employer] IMPRESSION: 1.No acute intracranial process. Report dictated by Isaiah Pablo MD I, Osiris Jacobson MD have personally reviewed and interpreted this examination/study. > Interpreting Provider: Osiris Jacobson MD on 06/25/2024 11:23 AM Narrative 06/25/2024 11:23 AM [employer] PROCEDURE: CT HEAD WO CONTRAST, DATE/TIME OF EXAM: 06/25/2024 10:28 AM, LOCATION [facility] INDICATION: H53.2: Diplopia EXAMINATION: Computed tomography (CT) of the head without contrast ADDITIONAL CLINICAL INFORMATION: Ordering Provider Reason For Exam: double vision Technologist Note: Additional: CONTRAST: TECHNIQUE: CT of the head was performed without contrast according to standard protocol. CT dose reduction technique was used, including Automated Exposure Control. COMPARISON: FINDINGS: No acute intracranial hemorrhage or extra-axial fluid collections are identified. The ventricles are of normal size, shape, and morphology. The basilar cisterns are patent. No mass effect or midline shift is seen. The lambert-white matter differentiation is normal. There is vascular calcification of the carotid siphons. No acute calvarial fracture is identified. Other than an old right lamina papyracea fracture, the orbits appear normal. There is mild paranasal sinus disease with layering fluid within the right maxillary sinus. The mastoid air cells are clear. No soft tissue abnormality is identified. Procedure Note Osiris Jacobson MD - 06/25/2024 PROCEDURE: CT HEAD WO CONTRAST, DATE/TIME OF EXAM: 06/25/2024 10:28AM, LOCATION [facility] INDICATION: H53.2: Diplopia EXAMINATION: Computed tomography (CT) of the head without contrast ADDITIONAL CLINICAL INFORMATION: Ordering Provider Reason For Exam: double vision Technologist Note: Additional: CONTRAST: TECHNIQUE: CT of the head was performed without contrast according to standard protocol. CT dose reduction technique was used, including Automated Exposure Control. COMPARISON: FINDINGS: No acute intracranial hemorrhage or extra-axial fluid collections are identified. The ventricles are of normal size, shape, and morphology.The basilar cisterns are patent. No mass effect or midline shift is seen.The lambret-white matter differentiation is normal. There is vascular calcification of the carotid siphons. No acute calvarial fracture is identified. Other than an old rightlamina papyracea fracture, the orbits appear normal. There is mild paranasalsinus disease with layering fluid within the right maxillary sinus. Themastoid air cells are clear. No soft tissue abnormality is identified. IMPRESSION: 1.No acute intracranial process. Report dictated by Isaiah Pablo MD I, Osiris Jacobson MD have personally reviewed and interpreted this examination/study. > Interpreting Provider: Osiris Jacobson MD on 06/25/2024 11:23 AM Abdullahi Malave DO CT ORDERABLES * (ABNORMAL) C-REACTIVE PROTEIN (06/25/2024 9:42 AM [employer]) C-Reactive Protein 0.7(H) <=0.5 mg/dL 06/25/2024 10:26 AM [employer] [facility] Blood BLOOD SPECIMEN / Unknown Venipuncture / Unknown 06/25/2024 9:42 AM [employer] 06/25/2024 9:55 AM [employer] Abdullahi Malave DO LAB - CHEMISTRY OR DERABLES [address] [address], [facility] [phone] * (ABNORMAL) ERYTHROCYTE SEDIMENTATION RATE (06/25/2024 9:42 AM [employer]) Erythrocyte Sedimentation Rate Westergren 25(H) 0 - 20 MM/HR 06/25/2024 10:17 AM [employer] [facility] Blood BLOOD SPECIMEN / Unknown Venipuncture / Unknown 06/25/2024 9:42 AM [employer] 06/25/2024 9:55 AM [employer] Abdullahi Malave DO LAB - HEMATOLOGY O RDERABLES Performing Organization Address City/[facility]/ZIP Co de Phone Number [address] [address], [facility] [phone] * CBC W AUTO DIFFERENTIAL (06/25/2024 9:42 AM [employer]) Only the most recent of16 resultswithin the time period is included. WBC 7.6 4.0 - 10.7 x10E9/L 06/25/2024 10:00 AM [facility] RBC Count 4.97 3.90 - 5.20 x10E12/L 06/25/2024 10:00 AM [facility] Hemoglobin 15.0 11.9 - 15.8 g/dL 06/25/2024 10:00 AM [facility] Hematocrit 44.8 34.8 - 46.1 % 06/25/2024 10:00 AM [facility] MCV 90.1 80.0 - 98.0 fL 06/25/2024 10:00 AM [facility] MCH 30.2 26.7 - 33.6 pg 06/25/2024 10:00 AM [facility] MCHC 33.5 31.7 - 36.3 g/dL 06/25/2024 10:00 AM [facility] RDW-CV 13.4 11.3 - 14.8 % 06/25/2024 10:00 AM [facility] Platelet Count 270 150 - 420 x10E9/L 06/25/2024 10:00 AM [facility] MPV 10.0 7.8 - 11.4 fL 06/25/2024 10:00 AM [facility] Neutrophil % 64.6 41.0 - 74.0 % 06/25/2024 10:00 AM [facility] Lymphocyte % 20.9 17.0 - 47.0 % 06/25/2024 10:00 AM [facility] Monocyte % 7.6 3.0 - 11.0 % 06/25/2024 10:00 AM [facility] Eosinophil % 5.7 0.0 - 7.0 % 06/25/2024 10:00 AM [facility] Basophil % 0.8 0.0 - 1.6 % 06/25/2024 10:00 AM [facility] Immature Granulocytes % 0.4 0.0 - 1.0 % 06/25/2024 10:00 AM [facility] Neutrophil Absolute 4.90 1.60 - 7.50 x10E9/L 06/25/2024 10:00 AM [facility] Lymphocyte Absolute 1.59 1.00 - 4.40 x10E9/L 06/25/2024 10:00 AM [facility] Monocyte Absolute 0.58 0.15 - 1.00 x10E9/L 06/25/2024 10:00 AM [facility] Eosinophil Absolute 0.43 0.00 - 0.60 x10E9/L 06/25/2024 10:00 AM [facility] Basophil Absolute 0.06 0.00 - 0.13 x10E9/L 06/25/2024 10:00 AM [facility] Blood BLOOD SPECIMEN / Unknown Venipuncture / Unknown 06/25/2024 9:42 AM [employer] 06/25/2024 9:55 AM [facility] Abdullahi Malave DO LAB - HEMATOLOGY O RDERABLES Performing Organization Address City/[facility] Co de Phone Number [address] [address], [facility] [phone] * (ABNORMAL) COMPREHENSIVE METABOLIC PANEL (06/25/2024 9:42 AM [employer]) Only the most recent of13 resultswithin the time period is included. BUN 11 7 - 26 mg/dL 06/25/2024 10:26 AM [facility] Creatinine 0.84 0.56 - 0.96 mg/dL 06/25/2024 10:26 AM [facility] Sodium 139 136 - 145 mmol/L 06/25/2024 10:26 AM [facility] Potassium 4.1 3.5 - 4.5 mmol/L 06/25/2024 10:26 AM [facility] Chloride 107 98 - 107 mmol/L 06/25/2024 10:26 AM [facility] CO2 25 22 - 29 mmol/L 06/25/2024 10:26 AM [facility] Glucose 98 70 - 99 mg/dL 06/25/2024 10:26 AM [facility] Calcium 9.3 8.4 - 10.2 mg/dL 06/25/2024 10:26 AM [facility] Protein Total 7.3 6.0 - 8.3 g/dL 06/25/2024 10:26 AM [facility] Albumin 3.6 3.4 - 5.0 g/dL 06/25/2024 10:26 AM [facility] Bilirubin Total 0.5 0.2 - 1.2 mg/dL 06/25/2024 10:26 AM [facility] Alkaline Phosphatase 87 40 - 150 U/L 06/25/2024 10:26 AM [facility] ALT 17 5 - 55 U/L 06/25/2024 10:26 AM [facility] AST 17 5 - 34 U/L 06/25/2024 10:26 AM [facility] Anion Gap 7 6 - 16 06/25/2024 10:26 AM [facility] BUN/Creatinine Ratio 13 7 - 23 06/25/2024 10:26 AM [facility] Osmolality Calculated 287 275 - 295 mOsm/kg 06/25/2024 10:26 AM [facility] Albumin/Globulin Ratio 1.0(L) 1.1 - 2.3 06/25/2024 10:26 AM [facility] eGFR by CKD-EPI 86(L) >=90 mL/min/1.7 3 m2 06/25/2024 10:26 AM [facility] Blood BLOOD SPECIMEN / Unknown Venipuncture / Unknown 06/25/2024 9:42 AM [employer] 06/25/2024 9:55 AM [employer] Abdullahi Malave DO LAB - CHEMISTRY OR DERABLES Performing Organization Address [facility]/State/ZIP Co de Phone Number [facility] [address] [place] [address], [facility] [phone] * AL INTRALESIONAL INJECTION(S) 7 OR LESS (02/08/2024 2:01 PM CDT) Narrative Tommy Castaneda PA-C - 02/08/2024 2:01 PM CDT Tommy Castaneda PA-C 02/08/2024 2:07 PM Derm - Intralesional Injection Date/Time: 02/08/2024 2:01 PM Performed by: Tommy Castaneda PA-C Authorized by: Tommy Castaneda PA-C Consent given by: patient Consent type: verbal Risks discussed with patient: striae, lipoatrophy, purpura, petechiae, skin color change, bleeding, infection and pain. Consent type: verbal Procedure details: Location information Left upper arm x 1 Right upper arm x 2 Number of standard lesions: 3 Chemical injected: triamcinolone 20mg/mL (0.1mL per lesion) Wound dressing: bandage Complications: none Tommy Castaneda PA-C PROCEDURE/MINOR SURG ICAL ORDERABLES * (ABNORMAL) CULTURE AEROBIC (04/12/2023 9:00 AM CDT) Only the most recent of9 resultswithin the time period is included. Culture (A) [facility] Comment: CULTURE, AEROBIC BACTERIA Micro Number: [id number] Test Status: Final Specimen Source: Neck Specimen Quality: Adequate Result: Light growth of Staphylococcus aureus COMMENT: Skin aspen also present. S.aureus INT ASHLEY CIPROFLOXACIN S 1 CLINDAMYCIN R >=8 ERYTHROMYCIN R >=8 GENTAMICIN S <=0.5 LEVOFLOXACIN S 1 MOXIFLOXACIN S <=0.25 OXACILLIN S 0.5 1 TETRACYCLINE S <=1 TRIMETHOPRIM/SULFA S <=10 VANCOMYCIN S 1 S=Susceptible I=Intermediate R=Resistant * = Not Tested NR = Not Reported NN = See Therapy Comments THERAPY COMMENTS Note 1: Oxacillin susceptible staphylococci are susceptible to other penicillinase-stable penicillins (e.g., methicillin, nafcillin), beta- lactam/beta-lactamase inhibitor combinations, and cephems with staphylococcal indications, including cefazolin. NO COLLECTION DATE RECEIVED. WE HAVE USED THE DATE THE SPECIMEN WAS RECEIVED BY THIS LABORATORY THE COLLECTION DATE. IF THIS IS INCORRECT, PLEASE CONTACT CLIENT SERVICES. PHONE NUMBER: [phone] Test Performed at: [facility] [phone] ITZEL MALAGON MD Microbiology ENTIRE NECK / Unknown 04/10/2023 1:33 AM CDT Tommy Castaneda PA-C LAB - MICROBIOLOGY O RDERABLES Performing Organization Address [facility] Co de Phone Number [address] [address] * (ABNORMAL) IRON + TIBC + FERRITIN (01/21/2023 9:40 AM CDT) Iron 25(L) 40 - 190 mcg/dL [facility] TIBC 387 250 - 450 mcg/dL (calc) [facility] % Saturation 6(L) 16 - 45 % (calc) [facility] Ferritin 14(L) 16 - 232 ng/mL [facility] Comment: Test Performed at: [facility] [address] [place] [address] ITZEL MALAGON MD 01/21/2023 9:40 AM CDT 01/21/2023 9:40 AM CDT Janice LAWSON LAB - CHEMISTRY ORDE MARISEL Performing Organization Address [facility] Co de Phone Number [address] [address] * (ABNORMAL) CULTURE FUNGUS SKIN HAIR NAIL+FUNGUS SMEAR (11/02/2022) Smear (A) [facility] Comment: CULTURE,FUNGUS,SKIN,HAIR, NAIL W/DIRECT FLUOR/MAHESH Micro Number: [id number] Test Status: Final Specimen Source: Skin torso Specimen Quality: Adequate Smear: Few Fungal elements seen Result: Mariana albicans Test Performed at: [facility] [phone] ITZEL MALAGON MD 11/02/2022 11/02/2022 8:0 7 PM CDT Janice LAWSON LAB - MICROBIOLOGY O RDERABLES Performing Organization Address [facility] Co de Phone Number [address] [address] * (ABNORMAL) PAP IG LB+HPV APTIMA (08/06/2021 12:06 PM [employer]) Diagnosis (A) [facility] INSURANCE BILL Comment: EPITHELIAL CELL ABNORMALITY. ATYPICAL SQUAMOUS CELLS OF UNDETERMINED SIGNIFICANCE (ASC-US). FUNGAL ORGANISMS MORPHOLOGICALLY CONSISTENT WITH MARIANA SPECIES ARE PRESENT. Recommendation (A) [facility] INSURANCE BILL Comment:Suggest follow up as clinically appropriate. Specimen Adequacy [facility] INSURANCE BILL Comment: Satisfactory for evaluation. Endocervical and/or squamous metaplastic cells (endocervical component) are present. Clinician Provided ICD10 [facility] INSURANCE BILL Comment:Z01.419 Performed by [facility] INSURANCE BILL Comment:Yifan Sneed totechnologist Electronically Signed by [facility] INSURANCE BILL Comment:Ivone Stone MD, Pathologist Comment . [facility] INSURANCE BILL Pathologist Provided ICD10 [facility] INSURANCE BILL Comment:R87.610, R87.5 Note [facility] INSURANCE [...] UTERINE CERVIX / Unknown 08/06/2021 12:06 PM [employer] 08/07/2021 Narrative [facility] INSURANCE BILL - 08/11/2021 5:08 PM [employer] Source.............Cervix No. of containers..01 ThinPrep Vial Resulting Agency Comment Lab Testing performed at: [address] [phone] Veronica Farrell MD LAB - PATHOLOGY/CYTO LOGY ORDERABLES [facility] INSURANCE BILL [address] [place] [address] * US LIVER BIOPSY (06/13/2021 8:41 AM [employer]) Anatomical Region Laterality Modality Abdomen X-Ray Angiograph y 06/13/2021 12:0 5 PM [employer] Impressions 06/13/2021 12:09 PM [employer] Impression: Ultrasound-guided core random biopsy of left hepatic lobe, as detailed above. Note that the pathology report is pending at the time of this dictation. I, Dr. Carpio, was present and performed/supervised the entire procedure. Moderate sedation on this patient was ordered by me, administered intravenously in my presence, and monitored by the procedure nurse as an independent trained observer who was present throughout the procedure. The following parameters were monitored: oxygen saturation, heart rate, blood pressure, and response to care. Intra-service sedation start time was 0815 and end time was 0835 during which I was present. Total physician intra-service sedation time was 20 minutes. For details on pre moderate sedation and post moderate sedation patient evaluation, please review the evaluation forms in [facility]. For details on monitored clinical parameters during the intra-service sedation time, please review the procedure nurse documentation in [facility]. This report was electronically signed by EREN CARPIO on 06/13/2021 12:09 PM . Narrative 06/13/2021 12:09 PM [employer] History: 45 year oldfemalewith atopic dermatitis with methotrexate use presented for liver biopsy Operators: 1.Dr. Carpio, Attending Physician 2.Moiz Rich MS3 Anesthesia: 1.Local anesthesia - 10 mL of 1% lidocaine 2.Intravenous conscious sedation - Versed 1 mg and Fentanyl 50 mcg Procedure: 1.Limited ultrasound evaluation of the left hepatic lobe. 2.Ultrasound-guided random core biopsy of left hepatic lobe. Procedure in detail: The procedure, risk, and possible complications were explained to the patient in detail, and informed consent was obtained. The patient was placed in a supine position on the ultrasound table and a limited multiplanar ultrasound evaluation of the left hepatic lobe was performed, demonstrating normal parenchyma. A percutaneous access site was marked on the skin. The marked site and skin around the region of interest was prepped and draped in sterile fashion. Pre-procedure time out was performed. Local anesthesia was provided with 1% Lidocaine. A 17 gauge coaxial needle system was advanced in stages under ultrasound guidance. The needle entry was documented. With the needle tip at/within the edge of the lesion, 3 core samples were acquired with a 18 gauge biopsy gun. The samples were sent to the pathology service in formalin. Post-biopsy limited ultrasound evaluation did not show any immediate complications such as major hemorrhage. The patient tolerated the procedure well and was transferred to the holding area in stable condition. Procedure Note Eren Carpio MD - 06/13/2021 History: 45 year oldfemalewith atopic dermatitis with methotrexate use presented for liver biopsy Operators: 1.Dr. Carpio, Attending Physician 2.Moiz Rich MS3 Anesthesia: 1.Local anesthesia - 10 mL of 1% lidocaine 2.Intravenous conscious sedation - Versed 1 mg and Fentanyl 50 mcg Procedure: 1.Limited ultrasound evaluation of the left hepatic lobe. 2.Ultrasound-guided random core biopsy of left hepatic lobe. Procedure in detail: The procedure, risk, and possible complications were explained to the patient in detail, and informed consent was obtained. The patient was placed in a supine position on the ultrasound table and a limited multiplanar ultrasound evaluation of the left hepatic lobe wasperformed, demonstrating normal parenchyma. A percutaneous access site was markedon the skin. The marked site and skin around the region of interest was prepped and draped in sterile fashion. Pre-procedure time out was performed. Local anesthesia was provided with 1% Lidocaine. A 17 gauge coaxialneedle system was advanced in stages under ultrasound guidance. The needleentry was documented. With the needle tip at/within the edge of the lesion, 3 core samples were acquired with a 18 gauge biopsy gun. The samples were sent to the pathology service in formalin. Post-biopsy limited ultrasound evaluation did not show any immediate complications such as major hemorrhage. The patient tolerated the procedure well and was transferred to the holding area in stable condition. Impression: Ultrasound-guided core random biopsy of left hepatic lobe,as detailed above. Note that the pathology report is pending at the time of this dictation. I, Dr. Carpio, was present and performed/supervised the entire procedure. Moderate sedation on this patient was ordered by me, administered intravenously in my presence, and [facility] as an independent trained observer who was present throughout the procedure. The following parameters were monitored: oxygen saturation, heart rate, blood pressure, and response to care. Intra-service sedation start time was 0815 and end time was 0835 during which I was present. Total physician intra-service sedation time was 20 minutes. For detailson pre moderate sedation and post moderate sedation patient evaluation, please review the evaluation forms in [facility]. For details on monitored clinical parameters during the intra-service sedation time, pleasereview the procedure nurse documentation in [facility]. This report was electronically signed by EREN CARPIO on 06/13/2021 12:09 PM . Ruchi Gibson PA-C US ORDERABLES * PATHOLOGY TISSUE (06/13/2021 8:33 AM [employer] [employer]) Case Report Surgical Pathology Report Case: [id number] Authorizing Provider: Ruchi Gibson PA-C Collected: 06/13/2021 08:33 AM Ordering Location: [facility] OP Received: 06/13/2021 11:44 AM Pathologist: Annmarie Lugo MD Specimen: Liver 06/17/2021 5:14 PM [facility] Final Diagnosis Liver, biopsy (A): - Minimal histologic alterations - No significant fibrosis - See comment 06/17/2021 5:14 PM [facility] Microscopic Description and Comment The biopsy shows relatively intact liver parenchyma, with portal tracts and central veins evenly distributed across the core. In the lobules, there is scant minimal macrosteatosis (far less than 5%), mild anisonucleosis, and occasional lobular inflammation including frequent lobular eosinophils. There is no ballooning, acidophil bodies, or necrosis. There is no significant portal inflammation or interface activity. The trichrome stain shows no significant fibrosis. The reticulin stain shows intact lobular architecture. The PAS-D stain is negative for alpha-1 antitrypsin globules. The iron stain is negative. The history of methotrexate use is noted, but classic findings of liver injury due to methotrexate (steatosis, steatohepatitis, fibrosis) are not present in this biopsy. There are lobular eosinophils present, though these are scattered mostly in the sinusoids, and may simply reflect the patient's eosinophilia, as there is no significant liver injury associated with the eosinophils. 06/17/2021 5:14 PM [facility] Clinical History The patient is a 45-year-old woman with 2 g of methotrexate use. 06/17/2021 5:14 PM [facility] Gross Description The requisition and specimen(s) are identified with the patient's name Janice Denise. Received in formalin, specimen A , are 5 shi-brown tissue cores and multiple fragments, 0.3-2.0 cm in length and 0.1 cm in diameter, submitted in toto in cassette A1. Some fragments may not survive processing. DF 06/17/2021 5:14 PM [facility] Disclaimer The performance characteristics of all immunohistochemical and indirect immunofluorescence stains (if any) cited in this report were determined by the Histopathology Laboratory of [facility]. Some of these tests were developed by our own laboratory and have not been cleared or approved by the US Food and Drug Administration. The FDA does not require this test to go through premarket FDA review. These tests are used for clinical purposes. They should not be regarded as investigational or for research. This laboratory is certified under the Clinical Laboratory Improvement Amendments (CLIA) as qualified to perform high complexity clinical laboratory testing. This case has been personally reviewed and interpreted by the attending (teaching) pathologist. 06/17/2021 5:14 PM [facility] Embedded Images 06/17/2021 5:14 PM [facility] Biopsy, Needle ENTIRE LIVER / Unknown 06/13/2021 8:33 AM [facility] [employer] 06/13/2021 11:44 AM [facility] Ruchi Gibson PA-C LAB - PATHOLOGY /CYTOLOGY ORDERABLES Performing Organization Address City/State/[facility] Co de Phone Number [facility] [address] [phone] * (ABNORMAL) PT-INR [facility] (06/13/2021 7:06 AM [facility]) PT 11.6(L) 12.1 - 14.8 Seconds 06/13/2021 7:34 AM [facility] INR 0.9 See Comment 06/13/2021 7:34 AM [facility] Comment:The suggested therap eutic range for standard coumadin (warfarin) therapy is an INR of 2.0-3.0. For high-risk patients (Mechanical Mitral Valve Prosthesis, etc.), the suggested prophylactic therapeutic range is an INR of 2.5-3.5. Blood BLOOD SPECIMEN / Unknown Venipuncture / Unknown 06/13/2021 7:06 AM [employer] [employer] 06/13/2021 7:10 AM [employer] [employer] Eren Carpio MD LAB - COAGULATION OR DERABLES Performing Organization Address City/[facility]/ZIP Co de Phone Number [address] [address], [facility] [phone] * HCG URINE QUALITATIVE - POCT (IP) INTERFACED (06/13/2021 7:01 AM [employer] [employer]) HCG Qual Urine Negative Negative 06/13/2021 7:08 AM [facility] Urine URINE / Unknown 06/13/2021 7 :01 AM [employer] [employer] 06/13/2021 7:08 AM [employer] [employer] Ruchi Gibson PA-C LAB - POINT OF CARE ORDERABLES Performing Organization Address City/[facility]/ZIP Co de Phone Number [address] [address], [place] [phone] * HCG URINE QUAL POCT NOTIFICATION (06/13/2021 6:56 AM [employer] [employer]) Comment Notification Label Only - See Separate Report 06/13/2021 8:00 AM [facility] [employer] Urine URINE / Unknown 06/13/2021 6 :56 AM [employer] [employer] 06/13/2021 6:57 AM [employer] [employer] Eren Carpio MD LAB - URINALYSIS ORD ERABLES Performing Organization Address City/[facility]/ZIP Co de Phone Number [address] [address], [place] [phone] * PT-INR (06/11/2021 10:00 AM [facility] [employer]) INR 0.9 [facility] Comment: Reference Range 0.9-1.1 Moderate-intensity Warfarin Therapy 2.0-3.0 Higher-intensity Warfarin Therapy 3.0-4.0 PT 9.8 9.0 - 11.5 sec [facility] Comment: For additional information, please refer to http://education.[employer].Fooala/faq/NDQ075 (This link is being provided for informational/ educational purposes only.) REPORT COMMENT: FASTING:NO Test Performed at: [facility] [address] ITZEL MALAGON MD Blood BLOOD SPECIMEN / Unknown 06/11/2021 10:00 AM [employer] [employer] 06/11/2021 10:01 AM [employer] [employer] Ruchi Gibson PA-C LAB - COAGULATI ON ORDERABLES Performing Organization Address [facility] Co de Phone Number [address] [address] * HEPATIC FUNCTION PANEL (06/11/2021 10:00 AM [employer]) Only the most recent of2 resultswithin the time period is included. Protein Total 6.1 6.1 - 8.1 g/dL [facility] Albumin 3.6 3.6 - 5.1 g/dL [facility] Globulin Total 2.5 1.9 - 3.7 g/dL (calc) [facility] Albumin/Globulin Ratio 1.4 1.0 - 2.5 (calc) [facility] Bilirubin Total 0.2 0.2 - 1.2 mg/dL [facility] Bilirubin Direct 0.0 < OR = 0.2 mg/dL [facility] Bilirubin Indirect 0.2 0.2 - 1.2 mg/dL (calc) [facility] Alkaline Phosphatase 85 31 - 125 U/L [facility] AST 15 10 - 30 U/L [facility] ALT 16 6 - 29 U/L [facility] Comment: Test Performed at: [facility] [address] [place] [address] GRECIA BARROW DO,MPH Blood BLOOD SPECIMEN / Unknown 06/11/2021 10:00 AM [employer] [employer] 06/11/2021 10:01 AM [employer] [employer] Ruchi Gibson PA-C LAB - CHEMISTRY ORDERABLES Performing Organization Address [facility]/ZIP Co de Phone Number [address] [address] * AL DRAIN SKIN ABSCESS SIMPLE (05/04/2018 4:07 PM CDT) Narrative Lucero Lundy MD - 05/04/2018 4:07 PM CDT Jose Valladares MD 04/27/2018 3:32 PM Risks, benefits and alternatives to incision and drainage were discussed with the patient. Verbal consent was obtained. Location: left hamstring Skin prep: Alcohol Incision with #11 surgical blade was performed and contents were drained. Bacterial culture was obtained Dressing and wound care discussed. Jose Valladares MD Lucero Lundy MD PROCEDURE/MINOR ROWAN RGICAL ORDERABLES * QUANTIFERON TB-GOLD (04/20/2018 10:24 AM CDT) Only the most recent of2 resultswithin the time period is included. Pathologist [facility] QuantiFERON TB Gold NEGATIVE NEGATIVE [facility] Comment: Negative test result. M. tuberculosis complex infection unlikely. NIL 0.24 IU/mL [facility] Mitogen Nil >10.00 IU/mL [facility] TB-Nil 0.03 IU/mL [facility] Comment: The Nil tube value is used to determine if the patient has a preexisting immune response which could cause a false-positive reading on the test. In order for a test to be valid, the Nil tube must have a value of less than or equal to 8.0 IU/mL. The mitogen control tube is used to assure the patient has a healthy immune status and also serves as a control for correct blood handling and incubation. It is used to detect false-negative readings. The mitogen tube must have a gamma interferon value of greater than or equal to 0.5 IU/mL higher than the value of the Nil tube. The TB antigen tube is coated with the M. tuberculosis specific antigens. For a test to be considered positive, the TB antigen tube value minus the Nil tube value must be greater than or equal to 0.35 IU/mL. For additional information, please refer to http://education.[employer].Fooala/faq/QFT (This link is being provided for informational/ educational purposes only.) REPORT COMMENT: FASTING:NO Test Performed at: [facility] [address] [place] [address] GRECIA BARROW DO,MPH 04/20/2018 10:2 4 AM CDT 04/20/2018 10:24 AM CDT Jose Valladares MD LAB - CHEMISTRY MIO JOINER Performing Organization Address [facility] de Phone Number [facility] [address] [place] [address] * (ABNORMAL) DIFFERENTIAL MANUAL REFLEXED II (03/22/2018 10:04 AM CDT) Pathologist [facility] Neutrophil Absolute 4823 1500 - 7800 cells/uL [facility] Lymphocytes Absolute 1073 850 - 3900 cells/uL [facility] Absolute Monocytes 840 200 - 950 cells/uL [facility] Eosinophils Absolute 690(H) 15 - 500 cells/uL [facility] Basophils Absolute 75 0 - 200 cells/uL [facility] Granulocytes % 64.3 % [facility] Lymphocytes % 14.3 % [facility] Monocytes % 11.2 % [facility] Eosinophils % 9.2 % [facility] Basophils % 1.0 % [facility] Platelet Estimation ADEQUATE ADEQUATE [facility] CBC Morphology NORMAL [facility] Comment: Anisocytosis 1 + Polychromasia 1 + Test Performed at: [facility] [address] [place] [address] GRECIA BARROW DO,MPH 03/22/2018 10:0 4 AM CDT 03/22/2018 10:16 AM CDT Jose Valladares MD LAB - HEMATOLOGY DINAH SHIELDS Performing Organization Address [facility] de Phone Number [facility] [address] [place] [address] * (ABNORMAL) CBC W MANUAL DIFFERENTIAL REVIEW (03/22/2018 10:04 AM CDT) White Blood Cell Count 7.5 3.8 - 10.8 Thousand/u L [facility] RBC 5.12(H) 3.80 - 5.10 Million/uL [facility] Hemoglobin 12.6 11.7 - 15.5 g/dL [facility] Hematocrit 39.8 35.0 - 45.0 % [facility] MCV 77.7(L) 80.0 - 100.0 fL [facility] MCH 24.6(L) 27.0 - 33.0 pg [facility] MCHC 31.7(L) 32.0 - 36.0 g/dL [facility] RDW 15.5(H) 11.0 - 15.0 % [facility] Platelet Count 354 140 - 400 Thousand/u L [facility] MPV 10.1 7.5 - 12.5 [facility] Comment: REPORT COMMENT: FASTING:NO Test Performed at: [facility] [employer] [address] [place] [address] GRECIA BARROW DO,MPH 03/22/2018 10:0 4 AM CDT 03/22/2018 10:16 AM CDT Jose Valladares MD LAB - HEMATOLOGY ORD ERABLES [facility] [address] [place] [phone] * HEPATITIS C AB W/RFLX TO HCV RNA QN PCR (05/27/2017 10:13 AM CDT) Hepatitis C Antibody NON-REACTI VE NON-REACT YESY [facility] ([facility]) Signal/Cutoff 0.03 <1.00 [facility] ([facility]) Comment: Test Performed at: [facility] [address] [facility] [place] [address] GRECIA BARROW DO,MPH 05/27/2017 10:1 3 AM CDT 05/27/2017 10:13 AM CDT Ana Pryor MD LAB - CHEMISTRY O RDERAKYA Performing Organization Address [facility] Co de Phone Number [facility] ([facility]) * HEPATITIS B SURFACE ANTIGEN W RFLX CONFIRMATION (05/27/2017 10:13 AM CDT) Hepatitis B Virus Surface Antigen NON-REACTI VE NON-REACT YESY [facility]) Comment: Test Performed at: [facility] [address] [place] [address] GRECIA BARROW DO,MPH 05/27/2017 10:1 3 AM CDT 05/27/2017 10:13 AM CDT Ana Pryor MD LAB - CHEMISTRY O RDERABLES [facility]) * (ABNORMAL) DIFFERENTIAL MANUAL (05/27/2017 10:12 AM CDT) Neutrophils Absolute 10,135(H) 1,500 - 7,800 cells/uL [facility] ([facility]) Absolute Bands Manual 254 0 - 750 cells/uL [facility] ([facility]) Lymphocytes Absolute 1803 850 - 3900 cells/uL [facility] ([facility]) Monocytes Absolute 0(L) 200 - 950 cells/uL [facility] ([facility]) Eosinophils Absolute 0(L) 15 - 500 cells/uL [facility] ([facility]) Basophil Absolute Manual 508(H) 0 - 200 cells/uL [facility] ([facility]) Neutrophils % 79.8 % [facility]) Band Neutrophil 2.0 % [facility]) Lymphocytes % 14.2 % [facility]) Monocytes % 0 % [facility]) Eosinophils % 0 % [facility]) Basophil % 4.0 % [facility]) Platelet Estimate INCREASED (A) ADEQUATE [facility] ([facility]) CBC Morphology NORMAL [facility] ([facility]) Comment: Anisocytosis 1 + Microcytosis 1 + Polychromasia 1 + Hypochromasia 1 + Crenated red blood cells 1 + See Note See Below [facility] ([facility]) Comment: Although an automated CBC was ordered, our instrumentation detected an abnormality on your patient's specimen requiring us to perform a manual review. Test Performed at: [facility] [address] [place] [address] GRECIA BARROW DO,MPH 05/27/2017 10:1 2 AM CDT 05/27/2017 10:12 AM CDT Ana Pryor MD LAB - HEMATOLOGY ORDERABLES Performing Organization Address [facility] Co de Phone Number [facility] ([facility]) * CULTURE FUNGUS OTHER+FUNGUS SMEAR (07/08/2012 3:00 PM [employer]) Pathologist [facility] Culture Fungus-Other NO GROWTH FUNGI. [facility] Cornea (Eye, Left) 07/08/2012 3:00 PM [employer] [employer] 07/08/2012 6:00 PM [employer] [employer] Narrative [facility] - 08/09/2012 2:26 PM [employer] Left cornea Specimen Type->Cornea Caden Fleming MD LAB - MICROBIOLOGY ORDERABLES [facility] [address] [place] [address], [facility] [phone] Care Teams Metal Sprayer Protective Coating Relationship Specialty Start Date End Date Unknown, Provider PCP - General 01/03/18
--- OUTSIDE RECORDS SUMMARY | 2024-10-11 20:58 | XMS_ITS | CONTINUITY OF CARE DOCUMENT ---
Author Name pranay giobina Address Unknown Organization [facility] [address] Address [address] [facility] [facility] [address] [place] [address] Phone [phone] Care Team Providers Care Production Corrugator Name Role Phone Cresencio SALGUERO, Aleah Unavailable ROBINSON SALGUERO, DEVON Prakash Unavailable [phone] PRESTON WASHINGTON MD Unavailable INSURANCE PROVIDERS Payer name Policy type / Coverage type Julian red [employer] party ID [id number] [id number]
--- OUTSIDE RECORDS SUMMARY | 2024-10-11 20:58 | XMS_ITS | Clinical Summary ---
Author Organization [facility] Address [address] [place] [address] Care Team Providers Care Content Coordinator Name Role Phone Unknown, Provider Primary Care Provider Unavaila ble Source Comments [facility],non-owned Affiliates and Associated Physician Practices is amultiple site organization consisting of ambulatory clinics and hospital sitesin [place], [place], [place] and [place]. This disclosure is being madepursuant to the Care Everywhere program and may not contain all information available regarding this patient. Last updated 18.[facility] Allergies Active Allergy Reactions Criticality Noted Date [...] 60 mL 4 10/29/2023 Active nystatin (Mycostatin) [id number] UNIT/GM creamIndications:I ntertrigo Apply to skin folds [...] as needed 30 day supply 30 g 08/24/2024 Active clindamycin (Cleocin) 1 % lotionIndications: Other specified follicular disorders Apply to affected area on thighs twice daily. 30 day supply. 60 mL 1 08/24/2024 Active ketoconazole (Nizoral) 2 % shampooIndications :Other seborrheic dermatitis Apply to wet hair, leave on for 3 minutes, then rinse; three times weekly. 30 days supply 120 mL 08/24/2024 Active fluocinonide (Lidex) 0.05 % solutionIndication s:Other seborrheic dermatitis Apply to affected scalp twice daily. 30 days supply. 40 mL 08/24/2024 Active ciclopirox (Loprox) 1 % shampooIndications :Other seborrheic dermatitis Apply to wet hair, leave on for 3 minutes, then rinse; twice weekly. 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 Encounters Date Type Department Care Team Description 08/25/2024 Telephone [facility] - General Dermatology [address], [address] [place] [address] Tommy Castaneda PA-C Medication Issue 08/24/2024 4:00 PM HOSPITAL SCIENTIST Office Visit [facility] - General Dermatology [address], [address] [place] [address] Tommy Castaneda PA-C Other atopic dermatitis (Primary Dx); Prurigo nodularis; Other specified follicular disorders; Other seborrheic dermatitis 08/24/2024 Travel 08/21/2024 9:30 AM HOSPITAL SCIENTIST Office Visit [facility] - Ophthalmology [address] [place] [phone] Fernando Gibbons MD 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 (F LUZONE; FLULAVAL; FLUARIX; AFLURIA QUADRIVALENT; 6MO+), 0.5 ML (IIV4) 05/13/2021 Family History Medical History Relation Name Comments None Known Brother Glaucoma Father None Known Maternal Aunt None Known Maternal Grandfather CVA Maternal Grandmother Cancer Maternal Uncle unknown type Cancer - Lung Mother None Known Other None Known Paternal Aunt CVA Paternal Grandfather None Known Paternal Grandmother None Known Paternal Uncle None Known Sister Asthma Neg Hx Blindness Neg Hx Cancer - Breast Neg Hx Cancer - Skin, Melanoma Neg Hx Cancer - Skin, Non Melanoma Neg Hx Cataract Neg Hx Eczema Neg Hx Hemophilia Neg Hx Macular Degeneration Neg Hx Psoriasis Neg Hx Relation Name Status Comments Brother Father Maternal Aunt Maternal Grandfather Maternal Grandmother Maternal Uncle Mother Other Paternal Aunt Paternal Grandfather Paternal Grandmother Paternal Uncle Sister Social History Tobacco Use Types Packs/Day Years Used Date Smoking Tobacco: Never Smokeless Tobacco: Never Tobacco Cessation:Counseling Given: Not Answered Alcohol Use Standard Drinks/Week Comments No 1 (1 standard drink = 0.6 oz pure alcohol) OCCASIONAL, ONCE EVERY FEW MONTHS PHQ-2 Answer Date Recorded PHQ2 TOTAL SCORE 0 08/06/2021 Sex and Gender Information Value Date Recorded Sex Assigned at Female 08/06/2021 9:18 AM HOSPITAL SCIENTIST Gender Identity Female 08/06/2021 9:18 AM HOSPITAL SCIENTIST Sexual Orientation Straight 08/06/2021 9: 18 AM HOSPITAL SCIENTIST Last Filed Vital Signs Vital Sign Reading Time Taken Comments Blood Pressure 126/57 06/25/2024 2:14 PM HOSPITAL SCIENTIST Pulse 75 06/25/2024 2:14 PM HOSPITAL SCIENTIST Temperature 36.6 C (97.9 F) 06/25/2024 9:07 AM HOSPITAL SCIENTIST Respiratory Rate 14 06/25/2024 2:14 PM HOSPITAL SCIENTIST Oxygen Saturation 98% 06/25/2024 2:14 PM HOSPITAL SCIENTIST Inhaled Oxygen Concentration - - Weight 136.1 kg (300 lb) 06/25/2024 9:07 AM HOSPITAL SCIENTIST Height 152.4 cm (5') 06/25/2024 9:07 AM HOSPITAL SCIENTIST Body Mass Index 58.59 06/25/2024 9:07 AM HOSPITAL SCIENTIST Plan of Treatment Upcoming Encounters Date Type Department Care Team (Late st Contact Info) Description 02/19/2025 11:00 AM CDT Office Visit [facility] - Ophthalmology [address] [place] [address], [place] [address] Fernando Gibbons MD [address] [place] [address] [place] [phone] 02/27/2025 1:00 PM CDT Office Visit [facility] - Dermatology [address] [place] [address], [place] [address] Tommy Castaneda, PAAbbyC [address] [place] [address] Health Maintenance Due Date Last Done Comments COLOGUARD (AGES 45-75) - COLON CA SCREENING 1976 COLON MONITORING 1976 COLONOSCOPY - COLON CA SCREENING 1976 CT COLONOGRAPHY - COLON CA SCREENING 1976 Colorectal Cancer Screening 1976 FIT - COLON CA SCREENING 1976 FLEX SIG - COLON CA SCREENING 1976 LIPID TESTING 1976 MAMMOGRAM 1976 HIV SCREENING 12/06/1991 DTAP/TDAP/TD VACCINES (1 - Tdap) 12/06/1995 HEPATITIS B VACCINE (1 of 3 - 19+ 3-dose series) 12/06/1995 COVID-19 VACCINE (1 - season) 2024 INFLUENZA VACCINE (#1) 2024 05/13/2021 DEPRESSION SCREENING 08/02/2024 04/13/2022 PAP with HPV 08/06/2026 08/06/2021 ZOSTER VACCINE (1 of 2) 2026 SCREENING FOR DIABETES 06/25/2027 , 01/21/2023, 05/15/2022, Additional history exists HEPATITIS C SCREENING Completed 05/27/2017 HIB VACCINE Aged Out No longer eligi ble based on patient's age to complete this topic HPV VACCINE Aged Out No longer eligi ble based on patient's age to complete this topic MENINGOCOCCAL (Group B) VACCINE SHARED DECISION-MAKING Aged Out No longer eligible based on patient's age to complete this topic MENINGOCOCCAL GROUPS A/C/Y/W VACCINE Aged Out No longer eligible based on patient's age to complete this topic PNEUMOCOCCAL VACCINE Aged Out No long er eligible based on patient's age to complete this topic Goals Goal Patient Goal Type Associated Problems Recent Progress Patient-Stated? Author Medication Management General On track( 022 10:49 AM HOSPITAL SCIENTIST) Norman Page, RN Note: Expected end date: Interventions: Take all medications as prescribed Let your doctor know right away about any changes in your medications Make sure to request a refill of your medication at least one week prior to your last dose Procedures Procedure Name Priority Date/Time Associated Diagnosis Comments COMPREHENSIVE METABOLIC PANEL STAT 06/25/2024 9:42 AM HOSPITAL SCIENTIST PAP IG LB+HPV APTIMA Routine 08/06/2021 12:06 PM HOSPITAL SCIENTIST Well woman exam with routine gynecological exam HEPATITIS C AB W/RFLX TO HCV RNA QN PCR Routine 05/27/2017 10:13 AM CDT from Last 3 Months or Most Recently Relevant to Health Maintenance Results * (ABNORMAL) COMPREHENSIVE METABOLIC PANEL (06/25/2024 9:42 AM HOSPITAL SCIENTIST) BUN 11 7 - 26 mg/dL 06/25/2024 10:26 AM [facility] Creatinine 0.84 0.56 - 0.96 mg/dL 06/25/2024 10:26 AM [facility] Sodium 139 136 - 145 mmol/L 06/25/2024 10:26 AM [facility] Potassium 4.1 3.5 - 4.5 mmol/L 06/25/2024 10:26 AM [facility] Chloride 107 98 - 107 mmol/L 06/25/2024 10:26 AM [facility] CO2 25 22 - 29 mmol/L 06/25/2024 10:26 AM [facility] Glucose 98 70 - 99 mg/dL 06/25/2024 10:26 AM [facility] Calcium 9.3 8.4 - 10.2 mg/dL 06/25/2024 10:26 AM [facility] Protein Total 7.3 6.0 - 8.3 g/dL 06/25/2024 10:26 AM [facility] Albumin 3.6 3.4 - 5.0 g/dL 06/25/2024 10:26 AM [facility] Bilirubin Total 0.5 0.2 - 1.2 mg/dL 06/25/2024 10:26 AM [facility] Alkaline Phosphatase 87 40 - 150 U/L 06/25/2024 10:26 AM [facility] ALT 17 5 - 55 U/L 06/25/2024 10:26 AM [facility] AST 17 5 - 34 U/L 06/25/2024 10:26 AM [facility] Anion Gap 7 6 - 16 06/25/2024 10:26 AM [facility] BUN/Creatinine Ratio 13 7 - 23 06/25/2024 10:26 AM [facility] Osmolality Calculated 287 275 - 295 mOsm/kg 06/25/2024 10:26 AM [facility] Albumin/Globulin Ratio 1.0(L) 1.1 - 2.3 06/25/2024 10:26 AM [facility] eGFR by CKD-EPI 86(L) >=90 mL/min/1.7 3 m2 06/25/2024 10:26 AM [facility] Blood BLOOD SPECIMEN / Unknown Venipuncture / Unknown 06/25/2024 9:42 AM HOSPITAL SCIENTIST 06/25/2024 9:55 AM [facility] Abdullahi Malave DO LAB - CHEMISTRY OR DERABLES [facility] [address] [place] [address], [facility] [phone] * (ABNORMAL) PAP IG LB+HPV APTIMA (08/06/2021 12:06 PM HOSPITAL SCIENTIST) Diagnosis (A) [facility] INSURANCE BILL Comment: EPITHELIAL [...] UTERINE CERVIX / Unknown 08/06/2021 12:06 PM HOSPITAL SCIENTIST 08/07/2021 Narrative [facility] INSURANCE BILL - 08/11/2021 5:08 PM HOSPITAL SCIENTIST Source.............Cervix No. of containers..01 ThinPrep Vial Resulting Agency Comment Lab Testing performed at: [address] [phone] Veronica Farrell MD LAB - PATHOLOGY/CYTO LOGY ORDERABLES [facility] INSURANCE BILL [address] [place] [address] * HEPATITIS C AB W/RFLX TO HCV RNA QN PCR (05/27/2017 10:13 AM CDT) Hepatitis C Antibody NON-REACTI VE NON-REACT [facility]Y [facility]) Signal/Cutoff 0.03 <1.00 [facility]) Comment: Test Performed at: [facility] [id number] [facility] [place] [address] GRECIA BARROW DO,MPH 05/27/2017 10:1 3 AM CDT 05/27/2017 10:13 AM CDT Ana Pryor MD LAB - CHEMISTRY O RDERABLES [facility]) from Last 3 Months or Most Recently Relevant to Health Maintenance Care Teams Content Coordinator Relationship Specialty Start Date End Date Unknown, Provider PCP - General 01/03/18
--- OUTSIDE RECORDS SUMMARY | 2024-10-11 20:58 | XMS_ITS | Encounter Summary ---
Author Organization [facility] Address [address] [place] [address] Care Team Providers Care Asphalt Coater Name Role Phone Unknown, Provider Primary Care Provider Unavaila ble Reason for Visit * Reason Onset Date Comments Medication Problem 07/01/2018 Encounter Details Date Type Department Care Team (Late st Contact Info) Description 07/01/2018 Telephone [facility] General Dermatology [address] [place] [address] Jose Valladares MD [address] [place] [address] Medication Problem Social History Tobacco Use Types Packs/Day Years Used Date Smoking Tobacco: Never Smokeless Tobacco: Never Alcohol Use Standard Drinks/Week Comments No 1 (1 standard drink = 0.6 oz pur e alcohol) Sex and Gender Information Value Date Recorded Sex Assigned at Female 08/06/2021 9:18 AM COMMUNITY AFFAIRS MANAGER Gender Identity Female 08/06/2021 9:18 AM COMMUNITY AFFAIRS MANAGER Sexual Orientation Straight 08/06/2021 9: 18 AM COMMUNITY AFFAIRS MANAGER documented as of this encounter Miscellaneous Notes * Telephone Encounter - Alberta Prescott - 07/01/2018 10:45 AM CST [place] 04/26/18 [place] 07/05/18 Alberta Prescott UNITY AFFAIRS MANAGER * Telephone Encounter - Rai Elder - 07/01/2018 10:01 AM CST Pt has not received her Methotrexate last week or this week. Pt was given our paper fax number to give to her pharmacy to have them fax over request. Please call pt to advise/discuss. Cordelia Elder Senior Patient [employer] Wire[employer] Department of Dermatology, Mohs Surgery and Cutaneous Oncology [facility] Dermatology [facility] UNITY AFFAIRS MANAGER documented in this encounter Plan of Treatment Upcoming Encounters Date Type Department Care Team (Late st Contact Info) Description 02/19/2025 11:00 AM CDT Office Visit [facility] - Ophthalmology [address] [place] [address], [place] [phone] Fernando Gibbons MD [address] [place] [address] [place] [phone] 02/27/2025 1:00 PM CDT Office Visit [facility] - Dermatology [address] [place] [phone] Tommy Castaneda, PA-C [address] [facility] [address] [place] [address] documented as of this encounter Visit Diagnoses Diagnosis Other atopic dermatitis documented in this encounter Care Teams Asphalt Coater Relationship Specialty Start Date End Date Unknown, Provider PCP - General 01/03/18 documented as of this encounter
== END 2024-10-11 20:40 | disposition left against medical advice (07) ==
LOC: ANHED 20:56
DX: H93.12 Tinnitus, left ear (principal)
CPT/HCPCS: 99199